=== PATIENT | female | born 1960 | race Caucasian/White ===

== ENCOUNTER 2022-05-20 11:08 | Outpatient (REF) | payer OTHER, SELFPAY ==
[2022-05-20 13:22] LABS: MANUAL DIFF FLAG NO
[2022-05-20 13:36] LABS: Basophils Absolute Auto 0.1 X10*3/uL (0.0-0.2); Basophils Percent Auto 0.7 % (0-2); Eosinophils Absolute Auto 0.1 X10*3/uL (0.0-0.4); Hematocrit 43.6 % (37.0-47.0); Hemoglobin 14.4 g/dl (12.0-16.0); Imm Gran Abs Auto 0.07 X10*3/uL (0.00-0.03); Imm Gran Pct Auto 0.6 % (0.0-0.4); Lymphocytes Absolute Auto 1.3 X10*3/uL (1.2-4.9); Lymphocytes Percent Auto 10.2 % (20-40); Mean Corpuscular Hemoglobin 32.7 pg (27.0-33.0); Mean Corpuscular Volume 98.9 fL (80.0-98.0); Mean Platelet Volume 11.4 fL (9.4-12.3); Monocytes Absolute Auto 0.8 X10*3/uL (0.1-1.2); Monocytes Percent Auto 6.4 % (2-11); Neutrophils Absolute Auto 10.2 x10*3/uL (2.0-8.3); Neutrophils Percent Auto 81.1 % (45-73); Platelet Count 346 X10*3/uL (160-400); Red Blood Count 4.41 X10*6/uL (4.20-5.50); Red Cell Distribution Width 11.9 % (11.0-16.0); White Blood Count 12.6 X10*3/uL (4.8-10.8)
[2022-05-20 13:55] LABS: Alanine Aminotransferase 39 U/L (0-31); Albumin Level 4.2 g/dL (3.5-5.0); Alkaline Phosphatase 93 U/L (39-117); Anion Gap 17 (12-20); Aspartate Amino Transferase 42 U/L (5-31); Bilirubin Total 0.6 mg/dL (0.0-1.0); Blood Urea Nitrogen 13 mg/dL (9-16); Calcium 8.8 mg/dL (8.4-10.2); Carbon Dioxide 29 mmol/L (22-29); Chloride 98 mmol/L (96-108); Cholesterol 254 mg/dL; Estimated Glomerular Filt Rate > 60; Glucose Fasting 109 mg/dL (60-99); HDL Cholesterol 66 mg/dL; LDL Cholesterol Calculated 176 mg/dl; Potassium 4.5 mmol/L (3.3-5.1); Sodium 139 mmol/L (135-145); Triglycerides 63 mg/dL
== END 2022-05-20 11:09 | disposition home or self-care (01) ==
LOC: HO.10HDL 11:08
PROVIDERS: Visit Provider Internal Medicine Medical Oncology
DX: E78.2 Mixed hyperlipidemia (principal); D47.3 Essential (hemorrhagic) thrombocythemia
CPT/HCPCS: 36415; 80053; 80061; 85025

== ENCOUNTER 2022-11-18 10:59 | Outpatient (REF) | payer OTHER, SELFPAY ==
[2022-11-18 13:39] LABS: MANUAL DIFF FLAG NO
[2022-11-18 13:52] LABS: Basophils Absolute Auto 0.1 X10*3/uL (0.0-0.2); Basophils Percent Auto 0.7 % (0-2); Eosinophils Absolute Auto 0.1 X10*3/uL (0.0-0.4); Eosinophils Percent Auto 1.2 % (0-4); Hematocrit 43.5 % (37.0-47.0); Hemoglobin 14.8 g/dl (12.0-16.0); Imm Gran Abs Auto 0.06 X10*3/uL (0.00-0.03); Imm Gran Pct Auto 0.5 % (0.0-0.4); Lymphocytes Absolute Auto 1.5 X10*3/uL (1.2-4.9); Lymphocytes Percent Auto 12.6 % (20-40); Mean Corpuscular Hemoglobin 33.1 pg (27.0-33.0); Mean Corpuscular Volume 97.3 fL (80.0-98.0); Mean Platelet Volume 10.6 fL (9.4-12.3); Monocytes Absolute Auto 0.7 X10*3/uL (0.1-1.2); Monocytes Percent Auto 5.4 % (2-11); Neutrophils Absolute Auto 9.7 x10*3/uL (2.0-8.3); Neutrophils Percent Auto 79.6 % (45-73); Platelet Count 376 X10*3/uL (160-400); Red Blood Count 4.47 X10*6/uL (4.20-5.50); Red Cell Distribution Width 11.8 % (11.0-16.0); White Blood Count 12.2 X10*3/uL (4.8-10.8)
[2022-11-18 14:30] LABS: Alanine Aminotransferase 25 U/L (0-31); Albumin Level 4.5 g/dL (3.5-5.0); Alkaline Phosphatase 71 U/L (39-117); Anion Gap 16 (12-20); Aspartate Amino Transferase 29 U/L (5-31); Bilirubin Total 0.4 mg/dL (0.0-1.0); Blood Urea Nitrogen 8 mg/dL (9-16); Calcium 9.7 mg/dL (8.4-10.2); Carbon Dioxide 29 mmol/L (22-29); Chloride 99 mmol/L (96-108); Cholesterol 262 mg/dL (<200); Estimated Glomerular Filt Rate > 60; Glucose Fasting 122 mg/dL (60-99); HDL Cholesterol 71 mg/dL (>40); LDL Cholesterol Calculated 164 mg/dL (<100); Potassium 3.6 mmol/L (3.3-5.1); Sodium 140 mmol/L (135-145); Total Protein 7.7 g/dL (6.5-8.0); Triglycerides 136 mg/dL (<150)
== END 2022-11-18 11:00 | disposition home or self-care (01) ==
LOC: HO.10HDL 10:59
PROVIDERS: Visit Provider Internal Medicine Medical Oncology
DX: Z00.00 Encounter for general adult medical examination without abnormal findings (principal); E78.2 Mixed hyperlipidemia; D47.3 Essential (hemorrhagic) thrombocythemia
CPT/HCPCS: 36415; 80053; 80061; 85025

== ENCOUNTER 2022-12-23 10:38 | Outpatient (REF) | payer OTHER, SELFPAY ==
[2022-12-23 13:37] LABS: Alanine Aminotransferase 25 U/L (0-31); Albumin Level 4.5 g/dL (3.5-5.0); Alkaline Phosphatase 65 U/L (39-117); Anion Gap 16 (12-20); Aspartate Amino Transferase 28 U/L (5-31); Bilirubin Total 0.6 mg/dL (0.0-1.0); Blood Urea Nitrogen 9 mg/dL (9-16); Calcium 9.8 mg/dL (8.4-10.2); Carbon Dioxide 28 mmol/L (22-29); Chloride 102 mmol/L (96-108); Cholesterol 275 mg/dL (<200); Estimated Glomerular Filt Rate > 60; Glucose Fasting 128 mg/dL (60-99); HDL Cholesterol 74 mg/dL (>40); LDL Cholesterol Calculated 181 mg/dL (<100); Potassium 4.1 mmol/L (3.3-5.1); Sodium 142 mmol/L (135-145); Total Protein 7.7 g/dL (6.5-8.0); Triglycerides 102 mg/dL (<150)
== END 2022-12-23 10:39 | disposition home or self-care (01) ==
LOC: HO.10HDL 10:38
PROVIDERS: Visit Provider Internal Medicine Medical Oncology
DX: E78.2 Mixed hyperlipidemia (principal)
CPT/HCPCS: 36415; 80053; 80061

== ENCOUNTER 2023-03-12 10:18 | Outpatient (REF) | payer OTHER, SELFPAY ==
--- NOTE | ~2023-03-12 | XR_ITS ---
EXAMINATION: XR HAND, RIGHT CLINICAL INFORMATION: Right hand pain COMPARISON: None available. TECHNIQUE: PA, lateral, and oblique views of the right hand. FINDINGS: First carpometacarpal joint possible marginal osteophyte without joint space narrowing indicative of mild osteoarthritis. Additional bone and joints and soft tissues unremarkable. . No erosions or soft tissue calcifications. XR/XR hand RT min 3V IMPRESSION: Mild osteoarthritis of the first carpometacarpal joint.
== END 2023-03-12 10:19 | disposition home or self-care (01) ==
LOC: HO.XRAY 10:18
PROVIDERS: PCP Internal Medicine Medical Oncology; Visit Provider Internal Medicine Medical Oncology
DX: M79.641 Pain in right hand (principal); M79.89 Other specified soft tissue disorders
CPT/HCPCS: 73130

== ENCOUNTER 2023-05-28 10:37 | Outpatient (REF) | payer OTHER, SELFPAY ==
[2023-05-28 13:17] LABS: MANUAL DIFF FLAG NO
[2023-05-28 13:53] LABS: Basophils Absolute Auto 0.1 X10*3/uL (0.0-0.2); Basophils Percent Auto 0.6 % (0-2); Eosinophils Absolute Auto 0.2 X10*3/uL (0.0-0.4); Eosinophils Percent Auto 1.4 % (0-4); Hematocrit 43.4 % (37.0-47.0); Hemoglobin 14.5 g/dl (12.0-16.0); Imm Gran Abs Auto 0.06 X10*3/uL (0.00-0.03); Imm Gran Pct Auto 0.5 % (0.0-0.4); Lymphocytes Absolute Auto 1.6 X10*3/uL (1.2-4.9); Lymphocytes Percent Auto 11.9 % (20-40); Mean Corpuscular HGB Conc 33.4 g/dl (31.0-35.0); Mean Corpuscular Hemoglobin 33.1 pg (27.0-33.0); Mean Corpuscular Volume 99.1 fL (80.0-98.0); Mean Platelet Volume 10.3 fL (9.4-12.3); Monocytes Absolute Auto 0.9 X10*3/uL (0.1-1.2); Monocytes Percent Auto 6.6 % (2-11); Neutrophils Absolute Auto 10.5 x10*3/uL (2.0-8.3); Platelet Count 371 X10*3/uL (160-400); Red Blood Count 4.38 X10*6/uL (4.20-5.50); Red Cell Distribution Width 11.9 % (11.0-16.0); White Blood Count 13.3 X10*3/uL (4.8-10.8)
[2023-05-28 13:59] LABS: Alanine Aminotransferase 20 U/L (0-31); Albumin Level 4.4 g/dL (3.5-5.0); Alkaline Phosphatase 60 U/L (39-117); Anion Gap 13 (12-20); Aspartate Amino Transferase 26 U/L (5-31); Bilirubin Total 0.7 mg/dL (0.0-1.0); Blood Urea Nitrogen 10 mg/dL (9-16); Calcium 9.5 mg/dL (8.4-10.2); Carbon Dioxide 32 mmol/L (22-29); Chloride 98 mmol/L (96-108); Cholesterol 272 mg/dL (<200); Estimated Glomerular Filt Rate > 60; Glucose Fasting 132 mg/dL (60-99); HDL Cholesterol 82 mg/dL (>40); LDL Cholesterol Calculated 172 mg/dL (<100); Potassium 4.3 mmol/L (3.3-5.1); Sodium 139 mmol/L (135-145); Total Protein 7.5 g/dL (6.5-8.0); Triglycerides 91 mg/dL (<150)
== END 2023-05-28 10:38 | disposition home or self-care (01) ==
LOC: HO.HMGCLDS 10:37
PROVIDERS: PCP Internal Medicine Medical Oncology; Visit Provider Internal Medicine Medical Oncology
DX: E78.2 Mixed hyperlipidemia (principal); R73.9 Hyperglycemia, unspecified; R63.6 Underweight
CPT/HCPCS: 36415; 80053; 80061; 85025

== ENCOUNTER 2023-09-29 11:59 | Outpatient (REF) | payer OTHER, SELFPAY ==
[2023-09-29 13:25] LABS: MANUAL DIFF FLAG NO
[2023-09-29 13:51] LABS: Basophils Absolute Auto 0.1 X10*3/uL (0.0-0.2); Basophils Percent Auto 0.8 % (0-2); Eosinophils Absolute Auto 0.1 X10*3/uL (0.0-0.4); Eosinophils Percent Auto 1.1 % (0-4); Hematocrit 42.4 % (37.0-47.0); Hemoglobin 14.4 g/dl (12.0-16.0); Imm Gran Abs Auto 0.07 X10*3/uL (0.00-0.03); Imm Gran Pct Auto 0.5 % (0.0-0.4); Lymphocytes Absolute Auto 1.3 X10*3/uL (1.2-4.9); Mean Corpuscular Hemoglobin 33.6 pg (27.0-33.0); Mean Corpuscular Volume 98.8 fL (80.0-98.0); Mean Platelet Volume 10.6 fL (9.4-12.3); Monocytes Absolute Auto 0.8 X10*3/uL (0.1-1.2); Monocytes Percent Auto 6.1 % (2-11); Neutrophils Absolute Auto 10.7 x10*3/uL (2.0-8.3); Neutrophils Percent Auto 81.5 % (45-73); Platelet Count 364 X10*3/uL (160-400); Red Blood Count 4.29 X10*6/uL (4.20-5.50); White Blood Count 13.1 X10*3/uL (4.8-10.8)
[2023-09-29 14:05] LABS: Alanine Aminotransferase 21 U/L (0-31); Albumin Level 4.6 g/dL (3.5-5.0); Alkaline Phosphatase 67 U/L (39-117); Anion Gap 15 (12-20); Aspartate Amino Transferase 31 U/L (5-31); Bilirubin Total 0.6 mg/dL (0.0-1.0); Blood Urea Nitrogen 9 mg/dL (9-16); Calcium 9.7 mg/dL (8.4-10.2); Carbon Dioxide 31 mmol/L (22-29); Chloride 98 mmol/L (96-108); Cholesterol 281 mg/dL (<200); Estimated Glomerular Filt Rate > 60; Glucose Fasting 132 mg/dL (60-99); HDL Cholesterol 89 mg/dL (>40); LDL Cholesterol Calculated 172 mg/dL (<100); Potassium 4.2 mmol/L (3.3-5.1); Sodium 140 mmol/L (135-145); Total Protein 7.8 g/dL (6.5-8.0); Triglycerides 104 mg/dL (<150)
== END 2023-09-29 12:00 | disposition home or self-care (01) ==
LOC: HO.HMGCLDS 11:59
PROVIDERS: PCP Internal Medicine Medical Oncology; Visit Provider Internal Medicine Medical Oncology
DX: Z00.00 Encounter for general adult medical examination without abnormal findings (principal); Z12.11 Encounter for screening for malignant neoplasm of colon; E78.2 Mixed hyperlipidemia; R63.6 Underweight
CPT/HCPCS: 36415; 80053; 80061; 85025

== ENCOUNTER 2024-02-02 10:51 | Outpatient (REF) | payer OTHER, SELFPAY ==
[2024-02-02 13:19] LABS: MANUAL DIFF FLAG NO
[2024-02-02 13:29] LABS: Basophils Absolute Auto 0.1 X10*3/uL (0.0-0.2); Eosinophils Absolute Auto 0.1 X10*3/uL (0.0-0.4); Eosinophils Percent Auto 0.9 % (0-4); Hematocrit 41.1 % (37.0-47.0); Hemoglobin 13.9 g/dl (12.0-16.0); Imm Gran Abs Auto 0.05 X10*3/uL (0.00-0.03); Imm Gran Pct Auto 0.4 % (0.0-0.4); Lymphocytes Absolute Auto 1.4 X10*3/uL (1.2-4.9); Lymphocytes Percent Auto 9.9 % (20-40); Mean Corpuscular HGB Conc 33.8 g/dl (31.0-35.0); Mean Corpuscular Hemoglobin 33.3 pg (27.0-33.0); Mean Corpuscular Volume 98.6 fL (80.0-98.0); Mean Platelet Volume 10.3 fL (9.4-12.3); Monocytes Absolute Auto 0.9 X10*3/uL (0.1-1.2); Monocytes Percent Auto 6.8 % (2-11); Neutrophils Absolute Auto 11.3 x10*3/uL (2.0-8.3); Platelet Count 381 X10*3/uL (160-400); Red Blood Count 4.17 X10*6/uL (4.20-5.50); Red Cell Distribution Width 11.9 % (11.0-16.0); White Blood Count 13.9 X10*3/uL (4.8-10.8)
[2024-02-02 14:29] LABS: Alanine Aminotransferase 25 U/L (0-31); Albumin Level 4.3 g/dL (3.5-5.0); Alkaline Phosphatase 81 U/L (39-117); Anion Gap 16 (12-20); Aspartate Amino Transferase 47 U/L (5-31); Bilirubin Total 0.7 mg/dL (0.0-1.0); Blood Urea Nitrogen 11 mg/dL (9-16); Calcium 9.8 mg/dL (8.4-10.2); Carbon Dioxide 29 mmol/L (22-29); Chloride 99 mmol/L (96-108); Cholesterol 249 mg/dL (<200); Estimated Glomerular Filt Rate > 60; Glucose Fasting 131 mg/dL (60-99); HDL Cholesterol 79 mg/dL (>40); LDL Cholesterol Calculated 150 mg/dL (<100); Potassium 4.4 mmol/L (3.3-5.1); Sodium 140 mmol/L (135-145); Total Protein 7.6 g/dL (6.5-8.0); Triglycerides 104 mg/dL (<150)
== END 2024-02-02 10:52 | disposition home or self-care (01) ==
LOC: HO.HMGCLDS 10:51
PROVIDERS: PCP Internal Medicine Medical Oncology; Visit Provider Internal Medicine Medical Oncology
DX: E78.2 Mixed hyperlipidemia (principal); R63.6 Underweight
CPT/HCPCS: 36415; 80053; 80061; 85025

== ENCOUNTER 2024-05-27 11:07 | Outpatient (REF) | payer OTHER, SELFPAY ==
[2024-05-27 13:08] LABS: MANUAL DIFF FLAG NO
[2024-05-27 13:24] LABS: Basophils Absolute Auto 0.1 X10*3/uL (0.0-0.2); Basophils Percent Auto 0.9 % (0-2); Eosinophils Absolute Auto 0.3 X10*3/uL (0.0-0.4); Eosinophils Percent Auto 2.1 % (0-4); Hematocrit 42.8 % (37.0-47.0); Hemoglobin 14.4 g/dl (12.0-16.0); Imm Gran Abs Auto 0.06 X10*3/uL (0.00-0.03); Imm Gran Pct Auto 0.5 % (0.0-0.4); Lymphocytes Absolute Auto 1.6 X10*3/uL (1.2-4.9); Mean Corpuscular HGB Conc 33.6 g/dl (31.0-35.0); Mean Corpuscular Volume 97.9 fL (80.0-98.0); Mean Platelet Volume 10.5 fL (9.4-12.3); Monocytes Absolute Auto 0.9 X10*3/uL (0.1-1.2); Neutrophils Absolute Auto 8.7 x10*3/uL (2.0-8.3); Neutrophils Percent Auto 74.5 % (45-73); Platelet Count 352 X10*3/uL (160-400); Red Blood Count 4.37 X10*6/uL (4.20-5.50); Red Cell Distribution Width 12.5 % (11.0-16.0); White Blood Count 11.7 X10*3/uL (4.8-10.8)
[2024-05-27 13:38] LABS: Estimated Average Glucose 100 mg/dL; Hemoglobin A1c % 5.1 % (<6.0); Total Hemoglobin (HGBA1C) 3812.5434 umol/L
[2024-05-27 14:12] LABS: Alanine Aminotransferase 54 U/L (0-31); Albumin Level 4.4 g/dL (3.5-5.0); Alkaline Phosphatase 93 U/L (39-117); Anion Gap 17 (12-20); Aspartate Amino Transferase 63 U/L (5-31); Bilirubin Total 0.7 mg/dL (0.0-1.0); Blood Urea Nitrogen 10 mg/dL (9-16); Calcium 9.5 mg/dL (8.4-10.2); Carbon Dioxide 29 mmol/L (22-29); Chloride 100 mmol/L (96-108); Cholesterol 279 mg/dL (<200); Estimated Glomerular Filt Rate > 60; Glucose Fasting 136 mg/dL (60-99); HDL Cholesterol 85 mg/dL (>40); LDL Cholesterol Calculated 175 mg/dL (<100); Potassium 4.5 mmol/L (3.3-5.1); Sodium 141 mmol/L (135-145); Triglycerides 98 mg/dL (<150)
== END 2024-05-27 11:08 | disposition home or self-care (01) ==
LOC: HO.HMGCLDS 11:07
PROVIDERS: PCP Internal Medicine Medical Oncology; Visit Provider Internal Medicine Medical Oncology
DX: E78.2 Mixed hyperlipidemia (principal); R73.9 Hyperglycemia, unspecified; R63.6 Underweight
CPT/HCPCS: 36415; 80053; 80061; 83036; 85025

== ENCOUNTER 2024-11-30 11:19 | Outpatient (REF) | payer OTHER, SELFPAY ==
--- OUTSIDE RECORDS SUMMARY | 2023-06-11 07:00 | XMS_ITS ---
Author Organization Jagdish Forde III, MD Address [address] [place] [address] Care Team Providers Care Highway Worker Name Role Phone Dr. Jagdish Forde III Primary Care Provider [phone] Allergies Allergen (clinical drug ingredient) Drug/Non Drug Allergy documented on EMR Reaction Allergy Type Onset Date Status No Known Drug Allergy Unknown Drug Allergy Active Results Component Value Reference Range Notes URINE DIP STICK Reviewed date:06/11/2023 11:32:38 AM Interpretation: Performing Lab: Notes/Report: SG 1.005 1.005 - 1.025 pH 9.0 5.0 - 9.0 MAYELIN Negative Negative - NIT Negative Negative - PRO 15 Negative - Trace GLU Negative Negative - KET Negative Negative - UBG 0.2 0.1 - 1.8 DARLING Negative 0.2 - 1.3 BLD Positive Negative - REASON FOR VISIT annual visit Social History Tobacco Use: Social History Observation Description Date Details (start date - stop date) Current Smoker NA - NA Sex Assigned At : Social History Observation Description Sex Assigned At Female Tobacco Use/Smoking Question Answer Notes Patient is a current smoker How often do you smoke cigarettes? every day How many cigarettes a day do you smoke? 6-10 How soon after you wake up d o you smoke your first cigarette? 31-60 minutes Are you interested in quitting? Not ready to abhijit t Additional Findings: Tobacco User Light cigarett e smoker ((1-9 cigs/day) Alcohol Screen Question Answer Notes Did you have a drink contain ing alcohol in the past year? Yes How often did you have a dri nk containing alcohol in the past year? Monthly or less (1 point) How many drinks did you have on a typical day when you were drinking in the past year? 1 or 2 drinks (0 point) How often did you have 6 or more drinks on one occasion in the past year? Never (0 point) Points 1 Interpretation Negative Vital Signs Temperature 98.2 degrees Fahrenheit 06/11/19 24 Blood pressure systolic 138 mm Hg 06/11/19 24 Blood pressure diastolic 78 mm Hg 024 Heart Rate 105 /min 06/11/2023 Height 68 in 06/11/2023 Weight 120 lbs 06/11/2023 BMI 18.24 kg/m2 06/11/2023 Encounters Encounter Location Date Provider Diagnosis Jagdish Forde III, MD [address] [place] [address] [place] [address] 06/11/2023 Jagdish Forde Encounter for screen ing for malignant neoplasm of colon Z12.11 ; Mixed hyperlipidemia E78.2 ; Underweight R63.6 ; History of psoriasis Z87.2 ; Edentulous maxilla K08.409 ; Postmenopausal Z78.0 and Tobacco dependence F17.200 Assessments Encounter Date Diagnosis (ICD Code) Assessment Notes Treat ment Notes Treatment Clinical Notes 06/11/2023 Encounter for screening for malignant neoplasm of colon (ICD-10 - Z12.11) She is trying to have a screening CT scan. 06/11/2023 Mixed hyperlipidemia (ICD-10 - E78.2) Her lipids are currently stable but elevated. Total cholesterol is 272. She declined my offer of a statin drug or of any other lipid-lowering medication. 06/11/2023 Underweight (ICD-10 - R63.6) We have discussed a healthy diet and good nutrition at length today. 06/11/2023 History of psoriasis (ICD-10 - Z87.2) Psoriasis was minimal today in no change in therapy was necessary. 06/11/2023 Edentulous maxilla (ICD-10 - K08.409) She says the denture fits poorly and she is going to see the dentist next week for an adjustment. 06/11/2023 Postmenopausal (ICD-10 - Z78.0) She has agreed to have a bone density test every 2 years. She has not had any periods since her last visit. 06/11/2023 Tobacco dependence (ICD-10 - F17.200) She continues to smoke on a daily basis. I've discussed with her the health consequences of doing so. I have made her aware of the smoking cessation program to the community at the local hospital. I have referred her to smoke [place]. Plan Of Treatment Pending Test Test Name Order Date PROFILE, FASTING (COMPREHENSIVE METABOLI C) 06/11/2023 CBC WITH AUTO DIFF 06/11/2023 COLOGUARD 06/11/2023 Lipid Panel 06/11/2023 Next Appt Details Follow Up: 4 Months, Reason: OV Provider Name:Jagdish Forde , 12/14/2024 11:00:00 AM, [address] [place] [address] [address], [place], [address], Provider Name:Jagdish Forde , 06/13/2025 11:00:00 AM, [address] [place] [address] [address] [place], [place], [address], Progress Notes * DAVIDMAYI TapanaDOB:1960 (62 yo F)Acc No.[id number]:06/11/2023 Progress Notes Patient: Lore Jauregui Provider: Jenna Forde MD :1960 A ge:62 Y S ex:Female Date:06/11/2023 Address:[address] [place], [place] [id number] Subjective: * Chief Complaints: * A nnual visit * HPI: D epression Screening: She comes to the office at the age of 62 for an annual physical examination. Since her last visit she has been feeling healthy and well. She has no new complaints. Her cholesterol was 272. It has been elevated in the past. She was offered a statin medication to take and once again declined the offer. She has lost 3 pounds and now weighs 120. Her body mass index is 18. We discussed her intake of calories at length today. PHQ-9 L ittle interest or pleasure in doing things?Not at all F eeling down, depressed, or hopeless N ot at all T rouble falling or staying asleep, or sleeping too much N ot at all F eeling tired or having little energy N ot at all P oor appetite or overeating N ot at all F eeling bad about yourself or that you are a failure, or have let yourself or your family down N ot at all T rouble concentrating on things, such as reading the newspaper or watching television N ot at all M oving or speaking so slowly that other people could have noticed; or the opposite, being so fidgety or restless that you have been moving around a lot more than usual N ot at all T houghts that you would be better off or of hurting yourself in some way N ot at all T otal Score 0 C OVID-19 Screening: Questions H ave you experienced fever, chills, cough, sore throat, shortness of breath, difficulty breathing, muscle aches, loss of taste or smell? N o H ave you been exposed to the virus within the last 10 days? N o H ave you travelled internationally in the last 10 days? N o H ave you been exposed to COVID-19 in the past? Y es S DOUGIE Questions: SDOH Questions I n the past year have you been worried about losing your housing? N o I n the past year have you or any family members you live with been unable to get any of the following when it was really needed? Check all that apply: N one * ROS: G eneral/Constitutional: pain o nly normal aches and pains, rith hand. C hills?denies. F atigue a dmits. F ever d enies. E NT: Decreased hearing d enies. R espiratory: Cough n on-productive. C ardiovascular: Chest pain with exertion d enies. D yspnea on exertion?denies. S hortness of breath d enies. G astrointestinal: Constipation o ccasional. D ecreased appetite d enies. D iarrhea d enies. H eartburn d enies. N ausea d enies. R ectal bleeding d enies. V omiting d enies. H ematology: bruising d enies. p etechiae d enies. S wollen glands n one have been noted. G enitourinary: Frequent urination a t night. M usculoskeletal: Muscle aches d enies. P ainful joints H ands shoulders and knees. S ciatica d enies. W eakness d enies. S kin: Itching d enies. R uli d enies. S kin lesion(s)?denies. N eurologic: Difficulty speaking d enies. D izziness d enies.?Headache d enies. L ow back pain d enies. P sychiatric: Depressed mood d enies. * Medical History: * Surgical History: u pper teeth extraction 2017resection inclusion cyst, left chin is a lump in declines colonoscopy * Hospitalization/Major Diagno stic Procedure: D enies Past Hospitalization * Family History: F ather: 62 yrs, CAD, [place], diabetes, diagnosed with DM, CVD. M other: 73 yrs, hypertension, colon cancer, diagnosed with Cancer, HTN. 1 daughter(s) - healthy. . She has no biological siblings but has 3 stepbothers and 3 stepsisters. Her daughter is well. * Social History: T obacco Use: T obacco Use/Smoking P atient is a c urrent smoker H ow often do you smoke cigarettes? e very day H ow many cigarettes a day do you smoke? 6 -10 H ow soon after you wake up do you smoke your first cigarette? 3 1-60 minutes A re you interested in quitting? N ot ready to quit A dditional Findings: Tobacco User L ight cigarette smoker ((1-9 cigs/day) D rugs/Alcohol: D rugs H ave you used drugs other than those for medical reasons in the past 12 months? N o Alcohol Screen D id you have a drink containing alcohol in the past year? Y es H ow often did you have a drink containing alcohol in the past year? M onthly or less (1 point) H ow many drinks did you have on a typical day when you were drinking in the past year? 1 or 2 drinks (0 point) H ow often did you have 6 or more drinks on one occasion in the past year? N ever (0 point) P oints 1 I nterpretation N egative S he is single with one daughter. 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 She was born and [place], [place]. She declines to have a colonoscopy. * Medications: N one * Allergies: N o Known Drug Allergyno[Allergies Verified] Objective: * Vitals: H t: 68, Wt: 120, BMI:18.24, BP: 138/78, HR: 105, Temp: 98.2, Wt-k.43. * P ast Orders: L ab:Complete Blood Count Auto Diff (Order Date - 05/28/2023) (Collection Date - 05/28/2023) Value Reference Range White Blood Count 13.3 H 4.8-10.8 - X10*3/uL Red Blood Count 4.38 4.20-5.50 - X10*6/uL Hemoglobin 14.5 12.0-16.0 - g/dl Hematocrit 43.4 37.0-47.0 - % Mean Corpuscular Volume 99.1 H 80.0-98.0 - fL Mean Corpuscular Hemoglobin 33.1 H 27.0-33.0 - pg Mean Corpuscular HGB Conc 33.4 31.0-35.0 - g/ dl Red Cell Distribution Width 11.9 11.0-16.0 - % Platelet Count 371 160-400 - X10*3/uL Mean Platelet Volume 10.3 9.4-12.3 - fL Neutrophils Percent Auto 79.0 H 45-73 - % Imm Gran Pct Auto 0.5 H 0.0-0.4 - % Lymphocytes Percent Auto 11.9 L 20-40 - % Monocytes Percent Auto 6.6 2-11 - % Eosinophils Percent Auto 1.4 0-4 - % Basophils Percent Auto 0.6 0-2 - % NRBC Pct Auto 0.0 0.0-0.2 - /100WBC Neutrophils Absolute Auto 10.5 H 2.0-8.3 - x10* 3/uL Imm Gran Abs Auto 0.06 H 0.00-0.03 - X10*3/uL Lymphocytes Absolute Auto 1.6 1.2-4.9 - X10* 3/uL Monocytes Absolute Auto 0.9 0.1-1.2 - X10*3/ uL Eosinophils Absolute Auto 0.2 0.0-0.4 - X10* 3/uL Basophils Absolute Auto 0.1 0.0-0.2 - X10*3/ uL NRBC Abs Auto 0.000 0.0-0.012 - X10*3/uL L ab:Comprehensive [place]. Panel Fast (Order Date - 05/28/2023) (Collection Date - 05/28/2023) Value Reference Range Sodium 139 135-145 - mmol/L Bilirubin Total 0.7 0.0-1.0 - mg/dL Aspartate Amino Transferase 26 5-31 - U/L Alanine Aminotransferase 20 0-31 - U/L Total Protein 7.5 6.5-8.0 - g/dL Albumin Level 4.4 3.5-5.0 - g/dL Alkaline Phosphatase 60 39-117 - U/L Potassium 4.3 3.3-5.1 - mmol/L Chloride 98 96-108 - mmol/L Carbon Dioxide 32 H 22-29 - mmol/L Anion Gap 13 12-20 - Blood Urea Nitrogen 10 9-16 - mg/dL Creatinine 0.63 0.5-1.4 - mg/dL Estimated Glomerular Filt Rate > 60 - Glucose Fasting 132 H 60-99 - mg/dL Calcium 9.5 8.4-10.2 - mg/dL L ab:Lipid Panel (Order Date - 05/28/2023) (Collection Date - 05/28/2023) Value Reference Range Triglycerides 91 <150 - mg/dL Cholesterol 272 H <200 - mg/dL LDL Cholesterol Calculated 172 H <100 - mg/dL HDL Cholesterol 82 >40 - mg/dL Lab:URINE DIP STICK * Order Date 06/11/2023 05/27/2022 09/07/2018 SG 1.005 (Ref Range: 1.005 - 1.025) 1.000 (Ref Range: 1.005 - 1.025) 1.010 pH 9.0 (Ref Range: 5.0 - 9.0) 7.5 (Ref Range: 5.0 - 9.0) 6.5 MAYELIN Negative (Ref Range: Negative -) neg (Ref Range: Negative -) neg NIT Negative (Ref Range: Negative -) neg (Ref Range: Negative -) neg PRO 15 (Ref Range: Negative - Trace) neg (Ref Range: Negative - Trace) neg GLU Negative (Ref Range: Negative -) neg (Ref Range: Negative -) normal KET Negative (Ref Range: Negative -) neg (Ref Range: Negative -) neg UBG 0.2 (Ref Range: 0.1 - 1.8) normal (Ref Range: 0.1 - 1.8) normal DARLING Negative (Ref Range: 0.2 - 1.3) neg (Ref Range: 0.2 - 1.3) neg BLD Positive (Ref Range: Negative -) neg (Ref Range: Negative -) neg Menstrating NR N/A no * Examination: G eneral Examination: GENERAL APPEARANCE: p leasant, underweight, well developed, in no acute distress, calm and relaxed , woman. HEAD: a traumatic, normocephalic. EYES: e emily, perrla, anicteric, conjugate. EARS: n ormal. NOSE: s eptum intact. ORAL CAVITY: n ormal, unremarkable, Edentulous maxilla.? NECK/THYROID: n o jugular venous distention, no carotid bruit, thyroid normal. LYMPH NODES: n o enlarged lymph nodes,spleen normal. SKIN: n o suspicious lesions, anicteric. HEART: n o clicks, gallops, murmurs, or rubs, regular rhythm, S1, S2 normal, no s3, or vascular bruits. LUNGS: c lear to auscultation . BREASTS: no masses palpable bilaterally. ABDOMEN: b owel sounds normal, no ascites, no organomegaly, no mass, Underweight. RECTAL EXAM: n ot examined. MUSCULOSKELETAL: e xtremities unremarkable, no clubbing, cyanosis or edema. PERIPHERAL PULSES: n ormal. NEUROLOGIC: a lert and oriented, cranial nerves 2-12 grossly intact, deep tendon reflexes 2+ symmetrical, motor strength normal upper and lower extremities, sensory exam intact. PSYCH: a lert, oriented , good eye contact , speech clear , mood/affect full range , cooperative with exam , cognitive function intact. Assessment: * Assessment: 1. E ncounter for screening for malignant neoplasm of colon - Z12.11, She is trying to have a screening CT scan. 2 . M ixed hyperlipidemia - E78.2, Her lipids are currently stable but elevated.Total cholesterol is 272. She declined my offer of a statin drug or of any other lipid-lowering medication. 3 . U nderweight - R63.6, We have discussed a healthy diet and good nutrition at length today. 4 . H istory of psoriasis - Z87.2, Psoriasis was minimal today in no change in therapy was necessary. 5 . E dentulous maxilla - K08.409, She says the denture fits poorly and she is going to see the dentist next week for an adjustment. 6 . P ostmenopausal - Z78.0, She has agreed to have a bone density test every 2 years. She has not had any periods since her last visit. 7 . T obacco dependence - F17.200, She continues to smoke on a daily basis. I've discussed with her the health consequences of doing so. I have made her aware of the smoking cessation program to the community at the local hospital. I have referred her to smoke [place]. Plan: * Treatment: 2. M ixed hyperlipidemia L AB: PROFILE, FASTING (COMPREHENSIVE METABOLIC) L AB: CBC WITH AUTO DIFF L AB: Lipid Panel 3. U nderweight L AB: PROFILE, FASTING (COMPREHENSIVE METABOLIC) L AB: CBC WITH AUTO DIFF L AB: Lipid Panel * Labs: * L ab: URINE DIP STICK Value Reference Range S G 1.005 1.005 - 1.025 * p H 9.0 5.0 - 9.0 * L EU Negative Negative - * N IT Negative Negative - * P RO 15 Negative - Trace * G EDNA Negative Negative - * K ET Negative Negative - * U BG 0.2 0.1 - 1.8 * B IL Negative 0.2 - 1.3 * B LD Positive Negative - * Procedure Codes: 8 1002 URINE-NO MICRO * Preventive Medicine: Counseling: C are goal follow-up plan: Counseling for abnormal BMI given Y es Below Normal BMI Follow-up D ietary education for weight gain, Dietary management education, guidance, and counseling, Feeding regime, Lifestyle education regarding diet, Nutrition / feeding management, Prescribed diet education, Special diet education, Intervention, Order not done: Medical or Other reason not done S moking/Tobacco Use Patient counseled on the dangers of tobacco use and urged to quit. 0 06/11/2023 Patient Lifestyle Goals P atient wants to quit Treatment Goals C ut down by 1 cigarette a week, Set a quit date Barriers S tress, Social smoker Self-Management Plan M abby a plan to cut down number of cigarettes over time and set a date to work towards quitting * Follow Up: 4 Months (Reason: OV) * Images: * Sign off status: Completed true * Provider: Jenna Forde MD Date: 0 06/11/2023 Generated for Printi ng/Devorah/eTransmitting on: 0 11/30/2024 12:47 PM EDT History and Physical Notes * HPI (History of Present Illness) Category Sub-Category Detail Notes Depression Screening PHQ-9 Little inte rest or pleasure in doing things: Not at all Feeling down, depressed, or hopeless: No t at all Trouble falling or staying asleep, or sl eeping too much: Not at all Feeling tired or having little energy: N ot at all Poor appetite or overeating: Not at all Feeling bad about yourself o r that you are a failure, or have let yourself or your family down: Not at all Trouble concentrating on thi ngs, such as reading the newspaper or watching television: Not at all Moving or speaking so slowly that other people could have noticed; or the opposite, being so fidgety or restless that you have been moving around a lot more than usual: Not at all Thoughts that you would be b dago off or of hurting yourself in some way: Not at all Total Score: 0 COVID-19 Screening Questions Have you had any new onset fever, chills, cough, congestion, sore throat, shortness of breath, muscle aches?: No Have you been exposed to the virus withi n the last 10 days?: No Have you travelled internationally in e last 10 days?: No Have you been exposed to COVID-19 in the past?: Yes SDOH Questions SDOH Questions In the past year have you been worried about losing your housing?: No In the past year have you or any family members you live with been unable to get any of the following when it was really needed? Check all that apply:: None Examination Category Sub-Category Detail Notes General Examination GENERAL APPEARANCE: pleasant , underweight, well developed, in no acute distress, calm and relaxed , woman HEAD: atraumatic, normocep halic EYES: eomi, perrla, anicte alisson, conjugate EARS: normal NOSE: septum intact NECK/THYROID: no jugular venous di stention, no carotid bruit, thyroid normal HEART: no clicks, gallops, murmurs, or rubs, regular rhythm, S1, S2 normal, no s3, or vascular bruits LUNGS: clear to auscultatio n ABDOMEN: bowel sounds normal, no ascites, no organomegaly, no mass, Underweight NEUROLOGIC: alert and oriented, cranial nerves 2-12 grossly intact, deep tendon reflexes 2+ symmetrical, motor strength normal upper and lower extremities, sensory exam intact SKIN: no suspicious lesion s, anicteric PERIPHERAL PULSES: normal BREASTS: no masses palpable b ilaterally MUSCULOSKELETAL: extremities unremark able, no clubbing, cyanosis or edema LYMPH NODES: no enlarged lymph no gabrielle,spleen normal RECTAL EXAM: not examined PSYCH: alert, oriented , go od eye contact , speech clear , mood/affect full range , cooperative with exam , cognitive function intact ORAL CAVITY: normal, unremarkable , Edentulous maxilla
--- OUTSIDE RECORDS SUMMARY | 2023-07-10 06:09 | XMS_ITS ---
Author Organization Jagdish Forde III, MD Address [address] [place] [address] [place] [address] Care Team Providers Care Area Field Person Name Role Phone Dr. Jagdish Forde III Primary Care Provider REASON FOR VISIT cologuard positive results Social History Sex Assigned At : Social History Observation Description Sex Assigned At Female Encounters Encounter Location Date Provider Diagnosis Jagdish Forde III, MD [address] [place] [address] [place] [address] 07/10/2023 Jagdish Forde Plan Of Treatment Next Appt Details Provider Name:Jagdish Forde , 12/14/2024 11:00:00 AM, [address] [place] [address] [place], [address], Provider Name:Jagdish Forde , 06/13/2025 11:00:00 AM, [address] [place] [address] [place], [address], Progress Notes * Alton PARKER:1960 (62 yo F)Acc No.[id number]:07/10/2023 Patient: Lore Jauregui :1960 A ge:62 Y S ex:Female Address:[address] [place], [address] * true * Date: Generated for Everton rivas/Devorah/Chrissie on: 0 11/30/2024 12:47 PM EDT
--- OUTSIDE RECORDS SUMMARY | 2023-10-13 07:00 | XMS_ITS ---
Author Organization Jagdish Forde III, MD Address [address] [place] [address] [place] [address] Care Team Providers Care Senior Information Security Analyst Name Role Phone Dr. Jagdish Forde III Primary Care Provider Allergies Allergen (clinical drug ingredient) Drug/Non Drug Allergy documented on EMR Reaction Allergy Type Onset Date Status No Known Drug Allergy Unknown Drug Allergy Active REASON FOR VISIT Positive cologard test, Hyperlipidemia, Tobacco dependence, Underweight, Thrombocytosis, Hyperlipidemia Social History Tobacco Use: Social History Observation [...] User Light cigarett e smoker ((1-9 cigs/day) Problems Problem Type SNOMED Code ICD Code Onset Dates Problem Status W/U Status Risk Notes Problem 933058778 Positive colorectal cancer screening using Cologuard test (R19.5) Active confirmed This test was submitted July 01 and reported July 10, 2023. It was reported to be positive. She was informed of this in July of this year and declined to undergo colonoscopy. Today, she declines colonoscopy again after a long discussion of the risks and benefits and rationale for the procedure. She is well aware that she could have dysplasia and a polyp or a small malignancy that could be cured now and that may not be curable and the future. Nonetheless, she has declined to undergo colonoscopy stating she does not wish to have this procedure done. She gave no other explanation despite an extensive discussion. Problem 1169684 Noncompliance (Z91.199) Active confirmed She has declined to have a colonoscopy or to be treated with a statin medication. This is well within her rights. She has made an Informed decision after being presented with adequate information about the risks and benefits and rationale for these recommendatio ns. She was reassured today that if she changes her mind these treatments will still be available. Vital Signs Temperature 97.3 degrees Fahrenheit 10/13/19 24 Blood pressure systolic 134 mm Hg 10/13/19 24 Blood pressure diastolic 82 mm Hg 024 Heart Rate 90 /min 10/13/2023 Height 68 in 10/13/2023 Weight 123 lbs 10/13/2023 BMI 18.70 kg/m2 10/13/2023 Encounters Encounter Location Date Provider Diagnosis Jagdish Forde III, MD [address] [place] [address] [facility] [address] 10/13/2023 Jagdish Forde Mixed hyperlipidemia E78.2 ; Underweight R63.6 ; Tobacco dependence F17.200 ; Thrombocytosis D47.3 ; Noncompliance Z91.199 and Positive colorectal cancer screening using Cologuard test R19.5 Assessments Encounter Date Diagnosis (ICD Code) Assessment Notes Treat ment Notes Treatment Clinical Notes 10/13/2023 Mixed hyperlipidemia (ICD-10 - E78.2) Her fasting lipid profile shows an elevated risk of atherosclerosis. I have strongly recommended statin therapy. Once again, she has declined the use of drugs to reduce her lipids. I have reviewed with her the elements of a lipid lowering diet. Her body mass index is 18. She is significantly underweight. I reviewed Risser a diet that contains 3 healthy meals a day. The fasting glucose of 132 was also discussed. 10/13/2023 Underweight (ICD-10 - R63.6) Her body mass index is 18. She is underweight. I recommended weight gain through a healthy Mediterranean diet low in animal fat and concentrated sweets. Her fasting glucose of 132 was noted. 10/13/2023 Tobacco dependence (ICD-10 - F17.200) She continues to smoke on a daily basis. I've discussed with her the health consequences of doing so. I have made her aware of the smoking cessation program to the community at the local hospital. I have referred her to smoke Elizabeth. 10/13/2023 Thrombocytosis (ICD-10 - D47.3) Her platelet count is 376,000. This problem has resolved. 10/13/2023 Noncompliance (ICD-1 0 - Z91.199) She has declined to have a colonoscopy or to be treated with a statin medication. This is well within her rights. She has made an Informed decision after being presented with adequate information about the risks and benefits and rationale for these recommendations. She was reassured today that if she changes her mind these treatments will still be available. 10/13/2023 Positive colorectal cancer screening using Cologuard test (ICD-10 - R19.5) This test was submitted July 01 and reported July 10, 2023. It was reported to be positive. She was informed of this in July of this year and declined to undergo colonoscopy. Today, she declines colonoscopy again after a long discussion of the risks and benefits and rationale for the procedure. She is well aware that she could have dysplasia and a polyp or a small malignancy that could be cured now and that may not be curable and the future. Nonetheless, she has declined to undergo colonoscopy stating she does not wish to have this procedure done. She gave no other explanation despite an extensive discussion. Plan Of Treatment Pending Test Test Name Order Date PROFILE, FASTING (COMPREHENSIVE METABOLI C) 10/13/2023 CBC WITH AUTO DIFF 10/13/2023 Lipid Panel 10/13/2023 Next Appt Details Follow Up: 4 Months, Reason: OV Provider Name:Jagdish Forde , 12/14/2024 11:00:00 AM, [address] [place] [address] [address], [place], [address], Provider Name:Jagdish Forde , 06/13/2025 11:00:00 AM, [address] [place] [address] [place], [address], Progress Notes * Alton PARKER:1960 (63 yo F)Acc No.[id number]:10/13/2023 Progress Notes Patient: Lore Jauregui Provider: Jenna Forde MD :1960 A ge:63 Y S ex:Female Date:10/13/2023 Address:[address] [place], [place] [id number] Subjective: * Chief Complaints: * P ositive cologard testHyperlipidemiaTobacco dependenceUnderweightThrombocytosisHyperlipidemia * HPI: C OVID-19 Screenin cigs pos cologard, declines colonoscopy and statin. She returns to the office for a scheduled visit for medical management. She has continued to smoke cigarettes dating that she consumes on the average of 7 cigarettes per day. We have discussed smoking cessation techniques at length today. She did not wish a referral to any of these programs. She underwent colorectal cancer screening on July 02, 2023 with the submission of a colo-guard tests. On July 10, 2023 the test result was returned as positive. I discussed this with her at that time and recommended she undergo colonoscopy. She refused to do so stating emphatically that she did not wish to have that test done. I discussed this with her again today and told her that a positive test may indicate the presence of a potentially curable colon cancer aren't advanced polyp with dysplasia they could become a malignancy. Once again she completely and emphatically refused a referral for a colonoscopy. She simply stated that she did not wish to have that test done. Her mental status appears to be normal. She is cognitively intact. She appears to be completely able to make decisions on her own behalf. Her blood work was reviewed with her. Her total cholesterol is significantly elevated. I discussed with her that this raised her risk of stroke and heart attack and atherosclerosis. I strongly recommended a statin medication such as a tour of a statin. I described the risks and benefits and all of the potential side effects. She has declined my offer of the prescription of a statin medication stating that she does not wish to take this medication. As with the colo-guard test, she appears to be mentally competent to make decisions. Questions H ave you experienced fever, chills, cough, sore throat, shortness of breath, difficulty breathing, muscle aches, loss of taste or smell? N o H ave you been exposed to the virus within the last 10 days? N o H ave you travelled internationally in the last 10 days? N o H ave you been exposed to COVID-19 in the past? N o * ROS: G eneral/Constitutional: pain o nly normal aches and pains. C hills d enies.?Fatigue a dmits. F ever d enies. E [...] Muscle aches d enies. P ainful joints d enies. S ciatica d enies. W eakness d [...] Family History: F ather: 63 yrs, CAD, [place], diabetes, diagnosed with CVD, DM. M other: 73 yrs, hypertension, colon cancer, [...] User L ight cigarette smoker ((1-9 cigs/day) S he is single with one daughter. 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 She was born and [place], [place]. She declines to have a colonoscopy. * Medications: N one * Allergies: N o Known Drug Allergyno[Allergies Verified] Objective: * Vitals: H t: 68, Wt:123, BMI:18.70, BP: 134/82, HR: 90, Temp:97.3. * P ast Orders: Lab:Lipid Panel * Order Date 09/29/2023 05/28/2023 12/23/2022 Triglycerides 104 (Ref Range: <150 mg/dL) 91 (Ref Range: <150 mg/dL) 102 (Ref Range: <150 mg/dL) Cholesterol 281 H (Ref Range: <200 mg/dL) 272 H (Ref Range: <200 mg/dL) 275 H (Ref Range: <200 mg/dL) LDL Cholesterol Calculated 172 H (Ref Range: <100 mg/dL) 172 H (Ref Range: <100 mg/dL) 181 H (Ref Range: <100 mg/dL) HDL Cholesterol 89 (Ref Range: >40 mg/dL) 82 (Ref Range: >40 mg/dL) 74 (Ref Range: >40 mg/dL) * Lab:[facility] [place]. Pane l Fast * Order Date 09/29/2023 05/28/2023 12/23/2022 Sodium 140 (Ref Range: 135-145 mmol/L) 139 (Ref Range: 135-145 mmol/L) 142 (Ref Range: 135-145 mmol/L) Bilirubin Total 0.6 (Ref Range: 0.0-1.0 mg/dL) 0.7 (Ref Range: 0.0-1.0 mg/dL) 0.6 (Ref Range: 0.0-1.0 mg/dL) Aspartate Amino Transferase 31 (Ref Range: 5-31 U/L) 26 (Ref Range: 5-31 U/L) 28 (Ref Range: 5-31 U/L) Alanine Aminotransferase 21 (Ref Range: 0-31 U/L) 20 (Ref Range: 0-31 U/L) 25 (Ref Range: 0-31 U/L) Total Protein 7.8 (Ref Range: 6.5-8.0 g/dL) 7.5 (Ref Range: 6.5-8.0 g/dL) 7.7 (Ref Range: 6.5-8.0 g/dL) Albumin Level 4.6 (Ref Range: 3.5-5.0 g/dL) 4.4 (Ref Range: 3.5-5.0 g/dL) 4.5 (Ref Range: 3.5-5.0 g/dL) Alkaline Phosphatase 67 (Ref Range: 39-117 U/L) 60 (Ref Range: 39-117 U/L) 65 (Ref Range: 39-117 U/L) Potassium 4.2 (Ref Range: 3.3-5.1 mmol/L) 4.3 (Ref Range: 3.3-5.1 mmol/L) 4.1 (Ref Range: 3.3-5.1 mmol/L) Chloride 98 (Ref Range: 96-108 mmol/L) 98 (Ref Range: 96-108 mmol/L) 102 (Ref Range: 96-108 mmol/L) Carbon Dioxide 31 H (Ref Range: 22-29 mmol/L) 32 H (Ref Range: 22-29 mmol/L) 28 (Ref Range: 22-29 mmol/L) Anion Gap 15 (Ref Range: 12-20) 13 (Ref Range: 12-20) 16 (Ref Range: 12-20) Blood Urea Nitrogen 9 (Ref Range: 9-16 mg/dL) 10 (Ref Range: 9-16 mg/dL) 9 (Ref Range: 9-16 mg/dL) Creatinine 0.66 (Ref Range: 0.5-1.4 mg/dL) 0.63 (Ref Range: 0.5-1.4 mg/dL) 0.61 (Ref Range: 0.5-1.4 mg/dL) Estimated Glomerular Filt Rate > 60 > 60 > 60 Glucose Fasting 132 H (Ref Range: 60-99 mg/dL) 132 H (Ref Range: 60-99 mg/dL) 128 H (Ref Range: 60-99 mg/dL) Calcium 9.7 (Ref Range: 8.4-10.2 mg/dL) 9.5 (Ref Range: 8.4-10.2 mg/dL) 9.8 (Ref Range: 8.4-10.2 mg/dL) * Lab:Complete Blood Count Aut o Diff * Order Date 09/29/2023 05/28/2023 11/18/2022 White Blood Count 13.1 H (Ref Range: 4.8-10.8 X10*3/uL) 13.3 H (Ref Range: 4.8-10.8 X10*3/uL) 12.2 H (Ref Range: 4.8-10.8 X10*3/uL) Red Blood Count 4.29 (Ref Range: 4.20-5.50 X10*6/uL) 4.38 (Ref Range: 4.20-5.50 X10*6/uL) 4.47 (Ref Range: 4.20-5.50 X10*6/uL) Hemoglobin 14.4 (Ref Range: 12.0-16.0 g/dl) 14.5 (Ref Range: 12.0-16.0 g/dl) 14.8 (Ref Range: 12.0-16.0 g/dl) Hematocrit 42.4 (Ref Range: 37.0-47.0 %) 43.4 (Ref Range: 37.0-47.0 %) 43.5 (Ref Range: 37.0-47.0 %) Mean Corpuscular Volume 98.8 H (Ref Range: 80.0-98.0 fL) 99.1 H (Ref Range: 80.0-98.0 fL) 97.3 (Ref Range: 80.0-98.0 fL) Mean Corpuscular Hemoglobin 33.6 H (Ref Range: 27.0-33.0 pg) 33.1 H (Ref Range: 27.0-33.0 pg) 33.1 H (Ref Range: 27.0-33.0 pg) Mean Corpuscular HGB Conc 34.0 (Ref Range: 31.0-35.0 g/dl) 33.4 (Ref Range: 31.0-35.0 g/dl) 34.0 (Ref Range: 31.0-35.0 g/dl) Red Cell Distribution Width 12.0 (Ref Range: 11.0-16.0 %) 11.9 (Ref Range: 11.0-16.0 %) 11.8 (Ref Range: 11.0-16.0 %) Platelet Count 364 (Ref Range: 160-400 X10*3/uL) 371 (Ref Range: 160-400 X10*3/uL) 376 (Ref Range: 160-400 X10*3/uL) Mean Platelet Volume 10.6 (Ref Range: 9.4-12.3 fL) 10.3 (Ref Range: 9.4-12.3 fL) 10.6 (Ref Range: 9.4-12.3 fL) Neutrophils Percent Auto 81.5 H (Ref Range: 45-73 %) 79.0 H (Ref Range: 45-73 %) 79.6 H (Ref Range: 45-73 %) Imm Gran Pct Auto 0.5 H (Ref Range: 0.0-0.4 %) 0.5 H (Ref Range: 0.0-0.4 %) 0.5 H (Ref Range: 0.0-0.4 %) Lymphocytes Percent Auto 10.0 L (Ref Range: 20-40 %) 11.9 L (Ref Range: 20-40 %) 12.6 L (Ref Range: 20-40 %) Monocytes Percent Auto 6.1 (Ref Range: 2-11 %) 6.6 (Ref Range: 2-11 %) 5.4 (Ref Range: 2-11 %) Eosinophils Percent Auto 1.1 (Ref Range: 0-4 %) 1.4 (Ref Range: 0-4 %) 1.2 (Ref Range: 0-4 %) Basophils Percent Auto 0.8 (Ref Range: 0-2 %) 0.6 (Ref Range: 0-2 %) 0.7 (Ref Range: 0-2 %) NRBC Pct Auto 0.0 (Ref Range: 0.0-0.2 /100WBC) 0.0 (Ref Range: 0.0-0.2 /100WBC) 0.0 (Ref Range: 0.0-0.2 /100WBC) Neutrophils Absolute Auto 10.7 H (Ref Range: 2.0-8.3 x10*3/uL) 10.5 H (Ref Range: 2.0-8.3 x10*3/uL) 9.7 H (Ref Range: 2.0-8.3 x10*3/uL) Imm Gran Abs Auto 0.07 H (Ref Range: 0.00-0.03 X10*3/uL) 0.06 H (Ref Range: 0.00-0.03 X10*3/uL) 0.06 H (Ref Range: 0.00-0.03 X10*3/uL) Lymphocytes Absolute Auto 1.3 (Ref Range: 1.2-4.9 X10*3/uL) 1.6 (Ref Range: 1.2-4.9 X10*3/uL) 1.5 (Ref Range: 1.2-4.9 X10*3/uL) Monocytes Absolute Auto 0.8 (Ref Range: 0.1-1.2 X10*3/uL) 0.9 (Ref Range: 0.1-1.2 X10*3/uL) 0.7 (Ref Range: 0.1-1.2 X10*3/uL) Eosinophils Absolute Auto 0.1 (Ref Range: 0.0-0.4 X10*3/uL) 0.2 (Ref Range: 0.0-0.4 X10*3/uL) 0.1 (Ref Range: 0.0-0.4 X10*3/uL) Basophils Absolute Auto 0.1 (Ref Range: 0.0-0.2 X10*3/uL) 0.1 (Ref Range: 0.0-0.2 X10*3/uL) 0.1 (Ref Range: 0.0-0.2 X10*3/uL) NRBC Abs Auto 0.000 (Ref Range: 0.0-0.012 X10*3/uL) 0.000 (Ref Range: 0.0-0.012 X10*3/uL) 0.000 (Ref Range: 0.0-0.012 X10*3/uL) * Examination: G eneral Examination: GENERAL APPEARANCE: p leasant, well nourished, well developed, in no acute distress, calm and relaxed , underweight , woman. HEAD: a traumatic, normocephalic. EYES: e emily, perrla, anicteric, conjugate. EARS: n ormal. NOSE: s eptum intact. ORAL CAVITY: n ormal, unremarkable. NECK/THYROID: n o jugular venous distention, no carotid bruit, thyroid normal. LYMPH NODES: n o enlarged lymph nodes,spleen normal. SKIN: n o suspicious lesions, anicteric. HEART: n o clicks, gallops, murmurs, or rubs, regular rhythm, S1, S2 normal, no s3, or vascular bruits. LUNGS: c lear to auscultation . BREASTS: n ot examined. ABDOMEN: b owel sounds normal, no ascites, no organomegaly, no mass, Underweight. RECTAL EXAM: n ot examined. MUSCULOSKELETAL: e xtremities unremarkable, no clubbing, cyanosis or edema. PERIPHERAL PULSES: n ormal. NEUROLOGIC: a lert and oriented, cranial nerves 2-12 grossly intact, deep tendon reflexes 2+ symmetrical, motor strength normal upper and lower extremities, sensory exam intact. PSYCH: a lert, oriented to person place and time , anxious appearing , speech clear , good eye contact , cooperative with exam , cognitive function intact, able to make decisions on her own behalf. Assessment: * Assessment: 1. M ixed hyperlipidemia - E78.2 (Primary), Her fasting lipid profile shows an elevated risk of atherosclerosis. I have strongly recommended statin therapy. Once again, she has declined the use of drugs to reduce her lipids. I have reviewed with her the elements of a lipid lowering diet. Her body mass index is 18. She is significantly underweight. I reviewed Risser a diet that contains 3 healthy meals a day. The fasting glucose of 132 was also discussed. 2 . U nderweight - R63.6, Her body mass index is 18. She is underweight. I recommended weight gain through a healthy Mediterranean diet low in animal fat and concentrated sweets. Her fasting glucose of 132 was noted. 3 .?Tobacco dependence - F17.200, She continues to smoke on a daily basis. I've discussed with her the health consequences of doing so. I have made her aware of the smoking cessation program to the community at the local hospital. I have referred her to smoke Elizabeth. 4 . T hrombocytosis - D47.3, Her platelet count is 376,000. This problem has resolved. 5 . N oncompliance - Z91.199, She has declined to have a colonoscopy or to be treated with a statin medication. This is well within her rights. She has made an Informed decision after being presented with adequate information about the risks and benefits and rationale for these recommendations. She was reassured today that if she changes her mind these treatments will still be available. 6 . P ositive colorectal cancer screening using Cologuard test - R19.5, This test was submitted July 01 and reported July 10, 2023. It was reported to be positive. She was informed of this in July of this year and declined to undergo colonoscopy. Today, she declines colonoscopy again after a long discussion of the risks and benefits and rationale for the procedure. She is well aware that she could have dysplasia and a polyp or a small malignancy that could be cured now and that may not be curable and the future. Nonetheless, she has declined to undergo colonoscopy stating she does not wish to have this procedure done. She gave no other explanation despite an extensive discussion. Plan: * Treatment: 2. U nderweight L AB: PROFILE, FASTING (COMPREHENSIVE METABOLIC) L AB: CBC WITH AUTO DIFF L AB: Lipid Panel * Procedure Codes: * Preventive Medicine: Counseling: C are goal [...] tobacco use and urged to quit. 0 10/13/2023 Patient Lifestyle Goals P atient wants to quit Treatment Goals C ut down by 1 cigarette a week, Set a quit date Barriers S ocial smoker, Stress Self-Management Plan M abby a plan to cut down number of cigarettes over time and set a date to work towards quitting * Follow Up: 4 Months (Reason: OV) * Images: * Sign off status: Completed true * Provider: Jenna Forde MD Date: 0 10/13/2023 Generated for Everton rivas/Devorah/Leahitting on: 0 11/30/2024 12:47 PM EDT History and Physical Notes * HPI (History of Present Illness) Category Sub-Category Detail Notes COVID-19 Screening Questions Have you had any new onset fever, chills, cough, congestion, sore throat, shortness of breath, muscle aches?: No Have you been exposed to the virus withi n the last 10 days?: No Have you travelled internationally in [facility] last 10 days?: No Have you been exposed to COVID-19 in the past?: No Examination Category Sub-Category Detail Notes General Examination GENERAL APPEARANCE: pleasant , well nourished, well developed, in no acute distress, calm and relaxed , underweight , woman HEAD: atraumatic, normocep halic EYES: [...] lesion s, anicteric PERIPHERAL PULSES: normal BREASTS: not examined MUSCULOSKELETAL: extremities unremark able, no clubbing, cyanosis or edema LYMPH NODES: no enlarged lymph no gabrielle,spleen normal RECTAL EXAM: not examined PSYCH: alert, oriented to p erson place and time , anxious appearing , speech clear , good eye contact , cooperative with exam , cognitive function intact, able to make decisions on her own behalf ORAL CAVITY: normal, unremarkable
--- OUTSIDE RECORDS SUMMARY | 2024-02-12 07:00 | XMS_ITS ---
Author Organization Jagdish Forde III, MD Address [address] [place] [address] [place] [address] Care Team Providers Care Brushing Machine Operator Name Role Phone Dr. Jagdish Forde III Primary Care Provider [phone] Allergies Allergen (clinical drug ingredient) Drug/Non Drug [...] Date Provider Diagnosis Jagdish Forde III, MD [address] [place] [address] DR [place], [place] [phone] 02/12/2024 Jagdish Forde Mixed hyperlipidemia E78.2 ; [...] hospital. I have referred her to smoke [place]. 02/12/2024 Thrombocytosis (ICD-10 - D47.3) Her platelet [...] Lenore son: OV Provider Name:Jagdish Forde , 12/14/2024 11:00:00 AM, [address] [place] [address] [address], [place], [address], Provider Name:Jagdish Forde , 06/13/2025 11:00:00 AM, [address] [facility] [place], [address], Progress Notes * Tapan PARKERAnabelaB:1960 (63 yo F)Acc No.[id number]:02/12/2024 Progress Notes Patient: Lore VALDEZ Provider: Jenna Forde MD :1960 A ge:63 Y S ex:Female Date:02/12/2024 Address:[address] [place], [place] [id number] Subjective: * Chief Complaints: * T obacco [...] Family History: F ather: 62 yrs, CAD, [place], diabetes, diagnosed with DM, CVD. M other: [...] with one daughter. 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 She declines to have a colonoscopy. * Medications: N one * Allergies: N o Known Drug Allergyno[Allergies Verified] Objective: * Vitals: H t: 68, Wt: 133, BMI:20.22, BP: 138/80, HR: 84, Temp: 97.1, Wt-k.33. * P ast Orders: Lab:Comprehensive [place]. [place] * Collection Date 02/02/2024 [...] MD Date: 1 04/14/2023 Generated for Everton rivas/Devorah/Leahitting on: 0 11/30/2024 [...]
--- OUTSIDE RECORDS SUMMARY | 2024-06-11 07:00 | XMS_ITS ---
Author Organization Jagdish Forde III, MD Address [address] [place] [address] Care Team Providers Care Senior Revenue Accountant Name Role Phone Dr. Jagdish Forde III Primary Care Provider [phone] Allergies Allergen (clinical drug ingredient) Drug/Non Drug Allergy documented on EMR Reaction Allergy Type Onset Date Status No Known Drug Allergy Unknown Drug Allergy Active Results Component Value Reference Range Notes URINE DIP STICK Reviewed date:06/11/2024 11:17:18 AM Interpretation: Performing Lab: Notes/Report: SG 1.010 1.005 - 1.025 pH 6.0 5.0 - 9.0 MAYELIN Negative Negative - NIT Negative Negative - PRO 15 Negative - Trace GLU Negative Negative - KET 15 Negative - UBG 0.2 0.1 - 1.8 DARLING Negative 0.2 - 1.3 BLD 5-10 Negative - REASON FOR VISIT annual visit Social History Tobacco Use: Social History Observation Description Date Details (start date - stop date) Current Smoker NA - NA Sex Assigned At : Social History Observation Description Sex Assigned At Female Tobacco Control (Standard) Question Answer Notes Tobacco use: Current smoker How often do you smoke cigarettes? Every day How many cigarettes a day do you smoke? 6-10 How soon after you wake up d o you smoke your first cigarette? 31-60 minutes Are you interested in quitting? Thinking about q uitting Additional Findings: Tobacco user Light cigarett e smoker (1-9 cigs/day) AUDIT-C (Standard) Question Answer Notes Did you have a drink containing alcohol in the p ast year? No Points 0 Interpretation Negative Vital Signs Temperature 98.4 degrees Fahrenheit 06/12/19 25 Blood pressure systolic 130 mm Hg 06/12/19 25 Blood pressure diastolic 74 mm Hg 025 Heart Rate 78 /min 06/11/2024 Height 68 in 06/11/2024 Weight 133 lbs 06/11/2024 BMI 20.22 kg/m2 06/11/2024 Encounters Encounter Location Date Provider Diagnosis Jagdish Forde III, MD [address] [place] [address] [place] [address] 06/11/2024 Jagdish Forde Mixed hyperlipidemia E78.2 ; Tobacco dependence F17.200 ; Postmenopausal Z78.0 ; History of psoriasis Z87.2 ; Edentulous maxilla K08.409 ; Hyperglycemia R73.9 ; Cough R05 and Thrombocytosis D47.3 Assessments Encounter Date Diagnosis (ICD Code) Assessment Notes T reatment Notes Treatment Clinical Notes 06/11/2024 Mixed hyperlipidemia (ICD-10 - E78.2) Her LDL is 50. Her total cholesterol has declined from 281 to its current value of 249. I have offered to give her statin medication but she adamantly declines to take any medication at this time. We discussed the risks of an elevated cholesterol and her family history of cardiovascular disease today at length. 06/11/2024 Tobacco dependence (ICD-10 - F17.200) She continues to smoke on a daily basis. I've discussed with her the health consequences of doing so. I have made her aware of the smoking cessation program to the community at the local hospital. I have referred her to smoke [place]. 06/11/2024 Postmenopausal (ICD-10 - Z78.0) She has agreed to have a bone density test every 2 years. She has not had any periods since her last visit. 06/11/2024 History of psoriasis (ICD-10 - Z87.2) Psoriasis was minimal today in no change in therapy was necessary. 06/11/2024 Edentulous maxilla (ICD-10 - K08.409) She says the denture fits poorly and she is going to see the dentist next week for an adjustment. 06/11/2024 Hyperglycemia (ICD-10 - R73.9) Her fasting glucose is 131. She continues in the prediabetic range. She declines to take any medication for her blood glucose levels. I have ordered a hemoglobin A1c to further characterize this. She will have a microalbumin.We have discussed at length the long-term consequences of untreated diabetes which include neuropathy renal failure or adenopathy immunosuppression weight loss etc. 06/11/2024 Cough (ICD-10 - R05) She continu es to have mild nonproductive cough, which is likeely due to smoking some tobaccco. 06/11/2024 Thrombocytosis (ICD-10 - D47.3) Her platelet count is 352,000. This problem has resolved. Plan Of Treatment Pending Test Test Name Order Date PROFILE, FASTING (COMPREHENSIVE METABOLI C) 06/11/2024 CBC w DIFF 06/11/2024 Lipid Panel 06/11/2024 Hemoglobin A1c 06/11/2024 Next Appt Details Follow Up: 6 Months, Reason: OV Provider Name:Jagdish Forde , 12/14/2024 11:00:00 AM, [address] [place] [address] [address], [place], [phone], Provider Name:Jagdish Forde , 06/13/2025 11:00:00 AM, [address] [place] [address] [address], [place], [phone], Progress Notes * GRACEMIKE TapanaDOB:1960 (63 yo F)Acc No.[id number]:06/11/2024 Progress Notes Patient: Lore VALDEZ Provider: Jenna Forde MD :1960 A ge:63 Y S ex:Female Date:06/11/2024 Address:[address] [place] [address] [place], [id number] Subjective: * Chief Complaints: * A nnual visit * HPI: D epression Screening: She returns to the office at the age of 63 for her annual physical examination.She has continued to smoke a half a package of cigarettes per day and is actively trying to reduce this. Her psoriasis has been minimal and is limited to a few patches. Her dentures fit well and she has no difficulty with protrusion. Her chronic cough has resolved. She has had no gastrointestinal symptoms.Her blood pressure is in the normal range. Her body mass index is now 90 and she is no longer overweight gained several pounds. Her appetite is good and she feels generally well. She denies any difficulty breathing. Her fasting total cholesterol was elevated and has been. Once again I discussed with her the use of a statin drug to reduce her total cholesterol to reduce the risk of cardiovascular events and atherosclerosis. She said she would think about it but did not agree to take a statin. She says she does not believe in taking medications for cholesterol. We discussed smoking cessation and also at length today. She agrees with the with still not smoking and will continue her efforts to assist to reduce her tobacco use. PHQ-9 L ittle interest or pleasure in [...] all T otal Score 0 C OVID-19 Screenin cig a day, mammo due next oct. psoriasis minimal, declines statin, requested nicotine patches insisted on otc. Questions H ave you had any new onset fever, chills, cough, congestion, sore throat, shortness of breath, muscle aches? N o S DOUGIE Questions: SDOH Questions I n [...] of breath d enies. G astrointestinal: Constipation d enies. D ecreased appetite d enies.?Diarrhea d enies. H eartburn o ccasional. N ausea d enies. R ectal bleeding d enies. V omiting d enies. H ematology: bruising d enies. p etechiae d enies. S wollen glands n one have been noted. G enitourinary: Frequent urination d enies. M usculoskeletal: Muscle aches d enies. P ainful joints d enies. S ciatica d enies. W eakness d enies. S kin: Itching d enies. R uli d enies. S kin lesion(s)?denies. N eurologic: Difficulty speaking d enies. D izziness d enies.?Headache d enies. L ow back pain d enies. P sychiatric: Depressed mood w hich is mild. * Medical History: * Surgical History: u pper teeth extraction 2017resection inclusion cyst, left chin is a lump in declines colonoscopy * Hospitalization/Major Diagno stic Procedure: D enies Past Hospitalization * Family History: F ather: 62 yrs, CAD, [place], diabetes, diagnosed with CVD, DM. M other: 73 yrs, hypertension, colon cancer, diagnosed with HTN, Cancer. 1 daughter(s) - healthy. . She has no biological siblings but has 3 stepbothers and 3 stepsisters. Her daughter is well. * Social History: T obacco Use: T obacco Control (Standard) T obacco use: C urrent smoker H ow often do you smoke cigarettes? E very day H ow many cigarettes a day do you smoke? 6 -10 H ow soon after you wake up do you smoke your first cigarette? 3 1-60 minutes A re you interested in quitting? T hinking about quitting A dditional Findings: Tobacco user L ight cigarette smoker (1-9 cigs/day) D rugs/Alcohol: D rugs H ave you used drugs other than those for medical reasons in the past 12 months? N o D rug/Alcohol: A LETTY-C (Standard) D id you have a drink containing alcohol in the past year? N o P oints 0 I nterpretation N egative S he is single with one daughter. 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 She was born and [place], [place]. She declines to have a colonoscopy. * Medications: N one * Allergies: N o Known Drug Allergyno[Allergies Verified] Objective: * Vitals: H t: 68, Wt: 133, BMI:20.22, BP: 130/74, HR: 78, Temp: 98.4, Wt-k.33. * P ast Orders: L ab:Hemoglobin A1c (Order Date - 05/27/2024) (Collection Date & Time - 05/27/2024 11:17 AM) Value Reference Range Hemoglobin A1c % 5.1 <6.0 - % Estimated Average Glucose 100 - mg/dL Lab:Lipid Panel * Collection Date 05/27/2024 02/02/2024 09/29/2023 Collection Time 11:17 AM 11:04 AM 12:05 PM Order Date 05/27/2024 02/02/2024 09/29/2023 Triglycerides 98 (Ref Range: <150 mg/dL) 104 (Ref Range: <150 mg/dL) 104 (Ref Range: <150 mg/dL) Cholesterol 279 H (Ref Range: <200 mg/dL) 249 H (Ref Range: <200 mg/dL) 281 H (Ref Range: <200 mg/dL) LDL Cholesterol Calculated 175 H (Ref Range: <100 mg/dL) 150 H (Ref Range: <100 mg/dL) 172 H (Ref Range: <100 mg/dL) HDL Cholesterol 85 (Ref Range: >40 mg/dL) 79 (Ref Range: >40 mg/dL) 89 (Ref Range: >40 mg/dL) * Lab:Comprehensive [place]. Pane l Fast * Collection Date 05/27/2024 02/02/2024 09/29/2023 Collection Time 11:17 AM 11:04 AM 12:05 PM Order Date 05/27/2024 02/02/2024 09/29/2023 Sodium 141 (Ref Range: 135-145 mmol/L) 140 (Ref Range: 135-145 mmol/L) 140 (Ref Range: 135-145 mmol/L) Bilirubin Total 0.7 (Ref Range: 0.0-1.0 mg/dL) 0.7 (Ref Range: 0.0-1.0 mg/dL) 0.6 (Ref Range: 0.0-1.0 mg/dL) Aspartate Amino Transferase 63 H (Ref Range: 5-31 U/L) 47 H (Ref Range: 5-31 U/L) 31 (Ref Range: 5-31 U/L) Alanine Aminotransferase 54 H (Ref Range: 0-31 U/L) 25 (Ref Range: 0-31 U/L) 21 (Ref Range: 0-31 U/L) Total Protein 8.0 (Ref Range: 6.5-8.0 g/dL) 7.6 (Ref Range: 6.5-8.0 g/dL) 7.8 (Ref Range: 6.5-8.0 g/dL) Albumin Level 4.4 (Ref Range: 3.5-5.0 g/dL) 4.3 (Ref Range: 3.5-5.0 g/dL) 4.6 (Ref Range: 3.5-5.0 g/dL) Alkaline Phosphatase 93 (Ref Range: 39-117 U/L) 81 (Ref Range: 39-117 U/L) 67 (Ref Range: 39-117 U/L) Potassium 4.5 (Ref Range: 3.3-5.1 mmol/L) 4.4 (Ref Range: 3.3-5.1 mmol/L) 4.2 (Ref Range: 3.3-5.1 mmol/L) Chloride 100 (Ref Range: 96-108 mmol/L) 99 (Ref Range: 96-108 mmol/L) 98 (Ref Range: 96-108 mmol/L) Carbon Dioxide 29 (Ref Range: 22-29 mmol/L) 29 (Ref Range: 22-29 mmol/L) 31 H (Ref Range: 22-29 mmol/L) Anion Gap 17 (Ref Range: 12-20) 16 (Ref Range: 12-20) 15 (Ref Range: 12-20) Blood Urea Nitrogen 10 (Ref Range: 9-16 mg/dL) 11 (Ref Range: 9-16 mg/dL) 9 (Ref Range: 9-16 mg/dL) Creatinine 0.62 (Ref Range: 0.5-1.4 mg/dL) 0.68 (Ref Range: 0.5-1.4 mg/dL) 0.66 (Ref Range: 0.5-1.4 mg/dL) Estimated Glomerular Filt Rate > 60 > 60 > 60 Glucose Fasting 136 H (Ref Range: 60-99 mg/dL) 131 H (Ref Range: 60-99 mg/dL) 132 H (Ref Range: 60-99 mg/dL) Calcium 9.5 (Ref Range: 8.4-10.2 mg/dL) 9.8 (Ref Range: 8.4-10.2 mg/dL) 9.7 (Ref Range: 8.4-10.2 mg/dL) * Lab:Complete Blood Count Aut o Diff * Collection Date 05/27/2024 02/02/2024 09/29/2023 Collection Time 11:17 AM 11:04 AM 12:05 PM Order Date 05/27/2024 02/02/2024 09/29/2023 White Blood Count 11.7 H (Ref Range: 4.8-10.8 X10*3/uL) 13.9 H (Ref Range: 4.8-10.8 X10*3/uL) 13.1 H (Ref Range: 4.8-10.8 X10*3/uL) Red Blood Count 4.37 (Ref Range: 4.20-5.50 X10*6/uL) 4.17 L (Ref Range: 4.20-5.50 X10*6/uL) 4.29 (Ref Range: 4.20-5.50 X10*6/uL) Hemoglobin 14.4 (Ref Range: 12.0-16.0 g/dl) 13.9 (Ref Range: 12.0-16.0 g/dl) 14.4 (Ref Range: 12.0-16.0 g/dl) Hematocrit 42.8 (Ref Range: 37.0-47.0 %) 41.1 (Ref Range: 37.0-47.0 %) 42.4 (Ref Range: 37.0-47.0 %) Mean Corpuscular Volume 97.9 (Ref Range: 80.0-98.0 fL) 98.6 H (Ref Range: 80.0-98.0 fL) 98.8 H (Ref Range: 80.0-98.0 fL) Mean Corpuscular Hemoglobin 33.0 (Ref Range: 27.0-33.0 pg) 33.3 H (Ref Range: 27.0-33.0 pg) 33.6 H (Ref Range: 27.0-33.0 pg) Mean Corpuscular HGB Conc 33.6 (Ref Range: 31.0-35.0 g/dl) 33.8 (Ref Range: 31.0-35.0 g/dl) 34.0 (Ref Range: 31.0-35.0 g/dl) Red Cell Distribution Width 12.5 (Ref Range: 11.0-16.0 %) 11.9 (Ref Range: 11.0-16.0 %) 12.0 (Ref Range: 11.0-16.0 %) Platelet Count 352 (Ref Range: 160-400 X10*3/uL) 381 (Ref Range: 160-400 X10*3/uL) 364 (Ref Range: 160-400 X10*3/uL) Mean Platelet Volume 10.5 (Ref Range: 9.4-12.3 fL) 10.3 (Ref Range: 9.4-12.3 fL) 10.6 (Ref Range: 9.4-12.3 fL) Neutrophils Percent Auto 74.5 H (Ref Range: 45-73 %) 81.0 H (Ref Range: 45-73 %) 81.5 H (Ref Range: 45-73 %) Imm Gran Pct Auto 0.5 H (Ref Range: 0.0-0.4 %) 0.4 (Ref Range: 0.0-0.4 %) 0.5 H (Ref Range: 0.0-0.4 %) Lymphocytes Percent Auto 14.0 L (Ref Range: 20-40 %) 9.9 L (Ref Range: 20-40 %) 10.0 L (Ref Range: 20-40 %) Monocytes Percent Auto 8.0 (Ref Range: 2-11 %) 6.8 (Ref Range: 2-11 %) 6.1 (Ref Range: 2-11 %) Eosinophils Percent Auto 2.1 (Ref Range: 0-4 %) 0.9 (Ref Range: 0-4 %) 1.1 (Ref Range: 0-4 %) Basophils Percent Auto 0.9 (Ref Range: 0-2 %) 1.0 (Ref Range: 0-2 %) 0.8 (Ref Range: 0-2 %) NRBC Pct Auto 0.0 (Ref Range: 0.0-0.2 /100WBC) 0.0 (Ref Range: 0.0-0.2 /100WBC) 0.0 (Ref Range: 0.0-0.2 /100WBC) Neutrophils Absolute Auto 8.7 H (Ref Range: 2.0-8.3 x10*3/uL) 11.3 H (Ref Range: 2.0-8.3 x10*3/uL) 10.7 H (Ref Range: 2.0-8.3 x10*3/uL) Imm Gran Abs Auto 0.06 H (Ref Range: 0.00-0.03 X10*3/uL) 0.05 H (Ref Range: 0.00-0.03 X10*3/uL) 0.07 H (Ref Range: 0.00-0.03 X10*3/uL) Lymphocytes Absolute Auto 1.6 (Ref Range: 1.2-4.9 X10*3/uL) 1.4 (Ref Range: 1.2-4.9 X10*3/uL) 1.3 (Ref Range: 1.2-4.9 X10*3/uL) Monocytes Absolute Auto 0.9 (Ref Range: 0.1-1.2 X10*3/uL) 0.9 (Ref Range: 0.1-1.2 X10*3/uL) 0.8 (Ref Range: 0.1-1.2 X10*3/uL) Eosinophils Absolute Auto 0.3 (Ref Range: 0.0-0.4 X10*3/uL) 0.1 (Ref Range: 0.0-0.4 X10*3/uL) 0.1 (Ref [...] eptum intact. ORAL CAVITY: n ormal, unremarkable, Edentulous. NECK/THYROID: n o jugular venous distention, no carotid bruit, thyroid normal. LYMPH NODES: n o enlarged lymph nodes,spleen normal. SKIN: n o suspicious lesions, anicteric. HEART: n o clicks, gallops, murmurs, or rubs, regular rhythm, S1, S2 normal, no s3, or vascular bruits. LUNGS: c lear to auscultation . BREASTS: N ot examined, Patient declined breast exam, prefers [employer] [facility]. ABDOMEN: b owel sounds normal, no ascites, no organomegaly, no mass. RECTAL EXAM: n ot examined. MUSCULOSKELETAL: e xtremities unremarkable, no clubbing, cyanosis or edema. PERIPHERAL PULSES: n ormal. NEUROLOGIC: a lert and oriented, cranial nerves 2-12 grossly intact, deep tendon reflexes 2+ symmetrical, motor strength normal upper and lower extremities, sensory exam intact. PSYCH: a lert, oriented. Assessment: * Assessment: 1. M ixed hyperlipidemia [...] cardiovascular disease today at length. 2 . T obacco dependence - F17.200 N otes :She continues to smoke on a daily basis. I've discussed with her the health consequences of doing so. I have made her aware of the smoking cessation program to the community at the local hospital. I have referred her to smoke [place]. 3 . P ostmenopausal - Z78.0 N otes :She has agreed to have a bone density test every 2 years. She has not had any periods since her last visit. 4 . H istory of psoriasis - Z87.2 N otes :Psoriasis was minimal today in no change in therapy was necessary. 5 . E dentulous maxilla - K08.409 N otes :She says the denture fits poorly and she is going to see the dentist next week for an adjustment. 6 . H yperglycemia - R73.9 N otes [...] failure or adenopathy immunosuppression weight loss etc. 7 . C ough - R05 N otes :She continues to have mild nonproductive cough, which is likeely due to smoking some tobaccco. 8 . T hrombocytosis - D47.3 N otes :Her platelet count is 352,000. This problem has resolved. Plan: * Treatment: * Labs: * L ab: URINE DIP STICK (Collection Date & Time - 06/11/2024) Value Reference Range S G 1.010 1.005 - 1.025 * p H 6.0 5.0 - 9.0 * L EU Negative Negative - * N IT Negative Negative - * P RO 15 Negative - Trace * G EDNA Negative Negative - * K ET 15 Negative - * U BG 0.2 0.1 - 1.8 * B IL Negative 0.2 - 1.3 * B LD 5-10 Negative - * Procedure Codes: 8 1002 URINE-NO MICRO * Preventive Medicine: Counseling: S moking/Tobacco Use Patient counseled on the dangers of tobacco use and urged to quit. 0 06/11/2024 Patient Lifestyle Goals P atient wants to quit Treatment Goals C ut down by 1 cigarette a week, Set a quit date Barriers S ocial smoker, Stress Self-Management Plan M abby a plan to cut down number of cigarettes over time and set a date to work towards quitting * Follow Up: 6 Months (Reason: OV) * Images: * Sign off status: Completed true * Provider: Jenna Forde MD Date: 0 06/11/2024 Generated for Shelleyi ng/Faxing/eTransmitting on: 0 11/30/2024 12:48 PM EDT History and Physical Notes * [...] throat, shortness of breath, muscle aches?: No SDOH Questions SDOH Questions In the past [...] s, anicteric PERIPHERAL PULSES: normal BREASTS: Not examined, Patien t declined breast exam, prefers [employer] [facility] MUSCULOSKELETAL: extremities unremark able, no clubbing, cyanosis or edema LYMPH NODES: no enlarged lymph no gabrielle,spleen normal RECTAL EXAM: not examined PSYCH: alert, oriented ORAL CAVITY: normal, unremarkable , Edentulous
--- OUTSIDE RECORDS SUMMARY | 2024-11-30 12:48 | XMS_ITS | Patient Health Record ---
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 Jagdish Forde III Primary Care Provider Allergies Allergen (clinical drug ingredient) Drug/Non Drug Allergy documented on EMR Reaction Allergy Type Onset Date Status No Known Drug Allergy Unknown Drug Allergy Active Results Component Value Reference Range Notes Complete Blood Count Auto Di ff Reviewed date:02/09/2024 05:33:01 AM Interpretation: Performing Lab:[facility], [address] [place] [phone] Notes/Report: White Blood Count 13.9 4.8-10.8 X10*3/uL Red Blood Count 4.17 4.20-5.50 X10*6/uL Hemoglobin 13.9 12.0-16.0 g/dl Hematocrit 41.1 37.0-47.0 % Mean Corpuscular Volume 98.6 80.0-98.0 fL Mean Corpuscular Hemoglobin 33.3 27.0-33.0 pg Mean Corpuscular HGB Conc 33.8 31.0-35.0 g/dl Red Cell Distribution Width 11.9 11.0-16.0 % Platelet Count 381 160-400 X10*3/uL Mean Platelet Volume 10.3 9.4-12.3 fL Neutrophils Percent Auto 81.0 45-73 % Imm Gran Pct Auto 0.4 0.0-0.4 % Lymphocytes Percent Auto 9.9 20-40 % Monocytes Percent Auto 6.8 2-11 % Eosinophils Percent Auto 0.9 0-4 % Basophils Percent Auto 1.0 0-2 % NRBC Pct Auto 0.0 0.0-0.2 /100WBC Neutrophils Absolute Auto 11.3 2.0-8.3 x10*3/u L Imm Gran Abs Auto 0.05 0.00-0.03 X10*3/uL Lymphocytes Absolute Auto 1.4 1.2-4.9 X10*3/u L Monocytes Absolute Auto 0.9 0.1-1.2 X10*3/uL Eosinophils Absolute Auto 0.1 0.0-0.4 X10*3/u L Basophils Absolute Auto 0.1 0.0-0.2 X10*3/uL NRBC Abs Auto 0.000 0.0-0.012 X10*3/uL Comprehensive [place]. Panel Fa st Reviewed date:02/09/2024 05:33:01 AM Interpretation: Performing Lab:[facility], [address] [place] [phone] Notes/Report: Sodium 140 135-145 mmol/L Potassium 4.4 3.3-5.1 mmol/L Chloride 99 96-108 mmol/L Carbon Dioxide 29 22-29 mmol/L Anion Gap 16 12-20 Blood Urea Nitrogen 11 9-16 mg/dL Creatinine 0.68 0.5-1.4 mg/dL Estimated Glomerular Filt Rate > 60 Chronic Kidney Disease: Estimated GFR < 60 mL/min/1.73m2 Severe Kidney Disease: Estimated GFR < 15 mL/min/1.73m2 Glucose Fasting 131 60-99 mg/dL A fasting glucose of 126 mg/dl or greater on more than one occasion is considered diagnostic of diabetes. Calcium 9.8 8.4-10.2 mg/dL Bilirubin Total 0.7 0.0-1.0 mg/dL Aspartate Amino Transferase 47 5-31 U/L Alanine Aminotransferase 25 0-31 U/L Total Protein 7.6 6.5-8.0 g/dL Albumin Level 4.3 3.5-5.0 g/dL Alkaline Phosphatase 81 39-117 U/L Lipid Panel Reviewed date:02/09/2024 05:33:01 AM Interpretation: Performing Lab:[facility], [address] [place] [phone] Notes/Report: Triglycerides 104 <150 mg/dL Desirable Triglyceride: less than 150 mg/dL Borderline High Triglyceride 150-199 mg/dL High Triglyceride: 200-499 mg/dL Very High Triglyceride: greater than or equal to 5OO mg/dL Cholesterol 249 <200 mg/dL Desirable Cholesterol: less than 200 mg/dL Borderline High Cholesterol: 200-239 mg/dL High Cholesterol: greater than 239 mg/dL LDL Cholesterol Calculated 150 <100 mg/dL Desirable LDL: less than 100 mg/dL Near Optimal/Above Optimal LDL: 110-129 mg/dL Borderline High LDL: 130-159 mg/dL High LDL: 160-189 mg/dL Very High LDL: greater than or equal to 190 mg/dL HDL Cholesterol 79 >40 mg/dL Desirable HDL: greater than 40 mg/dL Note: This HDL assay may give artificially low results in patients with liver disease. Complete Blood Count Auto Di ff Reviewed date:05/29/2024 07:58:28 AM Interpretation: Performing Lab:[facility], [address] [place] [phone] Notes/Report: White Blood Count 11.7 4.8-10.8 X10*3/uL Red Blood Count 4.37 4.20-5.50 X10*6/uL Hemoglobin 14.4 12.0-16.0 g/dl Hematocrit 42.8 37.0-47.0 % Mean Corpuscular Volume 97.9 80.0-98.0 fL Mean Corpuscular Hemoglobin 33.0 27.0-33.0 pg Mean Corpuscular HGB Conc 33.6 31.0-35.0 g/dl Red Cell Distribution Width 12.5 11.0-16.0 % Platelet Count 352 160-400 X10*3/uL Mean Platelet Volume 10.5 9.4-12.3 fL Neutrophils Percent Auto 74.5 45-73 % Imm Gran Pct Auto 0.5 0.0-0.4 % Lymphocytes Percent Auto 14.0 20-40 % Monocytes Percent Auto 8.0 2-11 % Eosinophils Percent Auto 2.1 0-4 % Basophils Percent Auto 0.9 0-2 % NRBC Pct Auto 0.0 0.0-0.2 /100WBC Neutrophils Absolute Auto 8.7 2.0-8.3 x10*3/u L Imm Gran Abs Auto 0.06 0.00-0.03 X10*3/uL Lymphocytes Absolute Auto 1.6 1.2-4.9 X10*3/u L Monocytes Absolute Auto 0.9 0.1-1.2 X10*3/uL Eosinophils Absolute Auto 0.3 0.0-0.4 X10*3/u L Basophils Absolute Auto 0.1 0.0-0.2 X10*3/uL NRBC Abs Auto 0.000 0.0-0.012 X10*3/uL Comprehensive [place]. Panel Fa st Reviewed date:05/29/2024 07:58:28 AM Interpretation: Performing Lab:[address] [phone] Notes/Report: Sodium 141 135-145 mmol/L Potassium 4.5 3.3-5.1 mmol/L Chloride 100 96-108 mmol/L Carbon Dioxide 29 22-29 mmol/L Anion Gap 17 12-20 Blood Urea Nitrogen 10 9-16 mg/dL Creatinine 0.62 0.5-1.4 mg/dL Estimated Glomerular Filt Rate > 60 Chronic Kidney Disease: Estimated GFR < 60 mL/min/1.73m2 Severe Kidney Disease: Estimated GFR < 15 mL/min/1.73m2 Glucose Fasting 136 60-99 mg/dL A fasting glucose of 126 mg/dl or greater on more than one occasion is considered diagnostic of diabetes. Calcium 9.5 8.4-10.2 mg/dL Bilirubin Total 0.7 0.0-1.0 mg/dL Aspartate Amino Transferase 63 5-31 U/L Alanine Aminotransferase 54 0-31 U/L Total Protein 8.0 6.5-8.0 g/dL Albumin Level 4.4 3.5-5.0 g/dL Alkaline Phosphatase 93 39-117 U/L Lipid Panel Reviewed date:05/29/2024 07:58:28 AM Interpretation: Performing Lab:[facility], [address] [place] [phone] Notes/Report: Triglycerides 98 <150 mg/dL Desirable Triglyceride: less than 150 mg/dL Borderline High Triglyceride 150-199 mg/dL High Triglyceride: 200-499 mg/dL Very High Triglyceride: greater than or equal to 5OO mg/dL Cholesterol 279 <200 mg/dL Desirable Cholesterol: less than 200 mg/dL Borderline High Cholesterol: 200-239 mg/dL High Cholesterol: greater than 239 mg/dL LDL Cholesterol Calculated 175 <100 mg/dL Desirable LDL: less than 100 mg/dL Near Optimal/Above Optimal LDL: 110-129 mg/dL Borderline High LDL: 130-159 mg/dL High LDL: 160-189 mg/dL Very High LDL: greater than or equal to 190 mg/dL HDL Cholesterol 85 >40 mg/dL Desirable HDL: greater than 40 mg/dL Note: This HDL assay may give artificially low results in patients with liver disease. Hemoglobin A1c Reviewed date:05/29/2024 07:58:28 AM Interpretation: Performing Lab:[facility], [address] [place] [phone] Notes/Report: Hemoglobin A1c % 5.1 <6.0 % Hemoglobin A1C Reference Range Adults: 4.8 - 6.0 % Non diabetic: < 6.0 % Goal: < 7.0 % Additional Action Suggested: > 8.0 % Note: Hemoglobin A1c results are invalid for patients with abnormal amounts of HbF. Blood transfusions may impact the HbA1c concentration in the patient sample. Estimated Average Glucose 100 eAG = Estimated average glucose which is %A1C expressed as average glucose, using the formula of the U1N-Iimchxb Average Glucose study (ADAG), Diabetes Care, Vol.31,#8, Oct. 2007 URINE DIP STICK Reviewed date:06/11/2024 11:17:18 AM Interpretation: Performing Lab: Notes/Report: SG 1.010 1.005 - 1.025 pH 6.0 5.0 - 9.0 MAYELIN Negative Negative - NIT Negative Negative - PRO 15 Negative - Trace GLU Negative Negative - KET 15 Negative - UBG 0.2 0.1 - 1.8 DARLING Negative 0.2 - 1.3 BLD 5-10 Negative - Reason For Referral No Information Social History Tobacco Use: Social History Observation [...] ast year? No Points 0 Interpretation Negative Problems Problem Type SNOMED Code ICD Code Onset Dates Problem Status W/U Status Risk Notes Problem 89907209 Postmenopausal (Z78.0) Active confirmed She has agreed to have a bone density test every 2 years. She has not had any periods since her last visit. Problem 09206133 Hyperglycemia (R73.9) Active confirmed Her fasting glucose is 131. She continues in the prediabetic range. She declines to take any medication for her blood glucose levels. I have ordered a hemoglobin A1c to further characterize this. She will have a microalbumin.We have discussed at length the long-term consequences of untreated diabetes which include neuropathy renal failure or adenopathy immunosuppression weight loss etc. Problem 293870601 Underweight (R63.6) Active confirmed Her body mass index has reached 20. She is no longer underweight. This value will be observed carefully. Problem Cough (14723619) Cough (R05) Active confirmed She continues to have mild nonproductive cough, which is likeely due to smoking some tobaccco. Problem 3133207 Thrombocytosis (D47.3) Active confirmed Her platelet co unt is 352,000. This problem has resolved. Problem 2035857 Arthritis (M19.90) Active confirmed The inflammatio n in the right hand is improving. Range of motion is preserved. The cause of this is unclear, but not infectious. She will continue with conservative therapy of heat and ibuprofen. I have offered to refer her to rheumatology for evaluation for gout and other etiologies But she declined that today. Problem 909374549 Mixed hyperlipidemia (E78.2) Active confirmed Her LDL is 50. Her total cholesterol has declined from 281 to its current value of 249. I have offered to give her statin medication but she adamantly declines to take any medication at this time. We discussed the risks of an elevated cholesterol and her family history of cardiovascular disease today at length. Problem 91508970 Tobacco dependence (F17.200) Active confirmed She continues t o smoke on a daily basis. I've discussed with her the health consequences of doing so. I have made her aware of the smoking cessation program to the community at the local hospital. I have referred her to [facility]. 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 Problem 630621795 History of psoriasis (Z87.2) Active confirmed Psoriasis was minimal today in no change in therapy was necessary. Problem 903653430 Positive colorectal cancer screening using Cologuard test [...] other explanation despite an extensive discussion. Problem 7905779 Noncompliance (Z91.199) Active confirmed She has decline d to have a colonoscopy or to be treated with a statin medication. This is well within her rights. She has made an Informed decision after being presented with adequate information about the risks and benefits and rationale for these recommendations. She was reassured today that if she changes her mind these treatments will still be available. Vital Signs Heart Rate 78 /min 06/11/2024 Temperature 98.4 degrees Fahrenheit 06/11/2024 Blood pressure diastolic 74 mm Hg 06/11/2024 Height 68 in 06/11/2024 Blood pressure systolic 130 mm Hg 06/11/2024 Weight 133 lbs 06/11/2024 BMI 20.22 kg/m2 06/11/2024 Encounters Encounter Location Date Provider Diagnosis Jagdish Forde III, MD [address] [place] [address] [place] [phone] 02/12/2024 Jagdish Forde Mixed hyperlipidemia E78.2 ; Hyperglycemia R73.9 ; Underweight R63.6 ; Tobacco dependence F17.200 ; Thrombocytosis D47.3 and Edentulous maxilla K08.409 Jagdish Forde III, MD [address] [place] [address] [place] [phone] 06/11/2024 Jadgish Forde Mixed hyperlipidemia E78.2 ; Tobacco dependence F17.200 ; Postmenopausal Z78.0 ; History of psoriasis Z87.2 ; Edentulous maxilla K08.409 ; Hyperglycemia R73.9 ; Cough R05 and Thrombocytosis D47.3 Assessments Encounter Date Diagnosis (ICD Code) Assessment Notes T reatment Notes Treatment Clinical Notes 02/12/2024 Hyperglycemia (ICD-10 - R73.9) Her fasting [...] or adenopathy immunosuppression weight loss etc. 02/12/2024 Mixed hyperlipidemia (ICD-10 - E78.2) Her LDL is 50. Her total cholesterol has declined from 281 to its current value of 249. I have offered to give her statin medication but she adamantly declines to take any medication at this time. We discussed the risks of an elevated cholesterol and her family history of cardiovascular disease today at length. 06/11/2024 Mixed hyperlipidemia (ICD-10 - E78.2) Her [...] I have referred her to smoke [facility]. 02/12/2024 Underweight (ICD-10 - R63.6) Her body mass index has reached 20. She is no longer underweight. This value will be observed carefully. 06/11/2024 Postmenopausal (ICD-10 - Z78.0) She has agreed to have a bone density test every 2 years. She has not had any periods since her last visit. 02/12/2024 Tobacco dependence (ICD-10 - F17.200) She continues to smoke on a daily basis. I've discussed with her the health consequences of doing so. I have made her aware of the smoking cessation program to the community at the local hospital. I have referred her to smoke [facility]. 06/11/2024 History of psoriasis (ICD-10 - Z87.2) Psoriasis was minimal today in no change in therapy was necessary. 02/12/2024 Thrombocytosis (ICD-10 - D47.3) Her platelet count is 381,000. This problem has resolved. 06/11/2024 Edentulous maxilla (ICD-10 - K08.409) She says the denture fits poorly and she is going to see the dentist next week for an adjustment. 02/12/2024 Edentulous maxilla (ICD-10 - K08.409) She [...] Order Date PROFILE, FASTING (COMPREHENSIVE METABOLI C) 01/06/2023 PROFILE, FASTING (COMPREHENSIVE METABOLI C) 05/27/2022 PROFILE, FASTING (COMPREHENSIVE METABOLI C) 10/13/2023 PROFILE, FASTING (COMPREHENSIVE METABOLI C) 11/09/2021 PROFILE, FASTING (COMPREHENSIVE METABOLI C) 06/11/2023 PROFILE, FASTING (COMPREHENSIVE METABOLI C) 11/25/2022 PROFILE, FASTING (COMPREHENSIVE METABOLI C) 06/11/2024 PROFILE, FASTING (COMPREHENSIVE METABOLI C) 02/12/2024 PROFILE, FASTING (COMPREHENSIVE METABOLI C) 09/07/2018 PROFILE, RANDOM (COMPREHENSIVE METABOLIC ) 01/07/2018 LIPID PANEL 09/07/2018 LIPID PANEL 05/27/2022 LIPID PANEL 01/07/2018 LIPID PANEL 11/25/2022 CBC w DIFF 09/07/2018 CBC w DIFF 05/27/2022 CBC w DIFF 01/07/2018 CBC w DIFF 11/09/2021 CBC w DIFF 06/11/2024 VITAMIN D 25-OH TOTAL 01/07/2018 CBC WITH AUTO DIFF 02/12/2024 CBC WITH AUTO DIFF 01/06/2023 CBC WITH AUTO DIFF 10/13/2023 CBC WITH AUTO DIFF 06/11/2023 COLOGUARD 06/11/2023 Lipid Panel 06/11/2024 Lipid Panel 06/11/2023 Lipid Panel 02/12/2024 Lipid Panel 01/06/2023 Lipid Panel 10/13/2023 Lipid Panel 11/09/2021 Hemoglobin A1c 06/11/2024 Hemoglobin A1c 02/12/2024 Next Appt Details Provider Name:Jagdish Forde , 12/14/2024 11:00:00 AM, [address] [place] [address] [address], [place], [phone], Provider Name:Jagdish Forde , 06/13/2025 11:00:00 AM, [address] [place] [address] [address], [place], [phone], Insurance Providers Payer Name Payer Address Payer Phone Subscriber Number Group Number Insured Name Patient Relationship to Insured Coverage Start Date Coverage End Date [employer] [address] [address] [place] [address] [id number] Lore Parker Self - patient is the insured [place] [address] [place], [place] [id number] Lore Parker Self - patient is the insured Medical (General) History Medical History History ICD Code Psoriasis L40.9 inclusion cyst, left chin, excised 2011 complete extraction. Maxillary teeth 201 7 tobacco dependence hyperlipidemia postmenopausal Surgical History Surgery Date(Month/Year) declines colonoscopy resection inclusion cyst, left chin is a lump in upper teeth extraction 2016
--- OUTSIDE RECORDS SUMMARY | 2024-11-30 12:48 | XMS_ITS | Patient Health Record ---
Author Organization [facility] Address [address] [place] [address] Support Name Relationship Address Phone TESSY BHATIA Guarantor Unknown [phone] Reason For Referral No Information Problems Problem Type SNOMED Code ICD Code Onset Dates Problem Status W/U Status Risk Notes Problem Gynecological examination normal (907491292759431) Routine gynecological examination (V72.31) Active confirmed Diag Problem Counseling (967635928) Counseling NOS (V65.40) Active confirmed Diag Plan Of Treatment No Information Insurance Providers Payer Name Payer Address Payer Phone Subscriber Number Group Number Insured Name Patient Relationship to Insured Coverage Start Date Coverage End Date [employer] [place] [address] [place] [address] [id number] TESSY BHATIA Self - patient is the insured
[2024-11-30 13:36] LABS: MANUAL DIFF FLAG NO
[2024-11-30 13:41] LABS: Hematocrit 40.1 % (37.0-47.0); Hemoglobin 13.6 g/dl (12.0-16.0); Imm Gran Abs Auto 0.07 X10*3/uL (0.00-0.03); Imm Gran Pct Auto 0.6 % (0.0-0.4); Lymphocytes Absolute Auto 1.4 X10*3/uL (1.2-4.9); Mean Corpuscular HGB Conc 33.9 g/dl (31.0-35.0); Mean Corpuscular Hemoglobin 32.9 pg (27.0-33.0); Mean Corpuscular Volume 97.1 fL (80.0-98.0); NRBC Abs Auto 0.000 X10*3/uL (0.0-0.012); NRBC Pct Auto 0.0 /100WBC (0.0-0.2); Platelet Count 360 X10*3/uL (160-400); Red Blood Count 4.13 X10*6/uL (4.20-5.50); White Blood Count 11.8 X10*3/uL (4.8-10.8)
[2024-11-30 13:48] LABS: Total Hemoglobin (HGBA1C) 3525.4257 umol/L
[2024-11-30 15:11] LABS: Alanine Aminotransferase 25 U/L (0-31); Albumin Level 4.5 g/dL (3.5-5.0); Alkaline Phosphatase 69 U/L (39-117); Anion Gap 14 (12-20); Aspartate Amino Transferase 38 U/L (5-31); Blood Urea Nitrogen 10 mg/dL (9-16); Calcium 9.3 mg/dL (8.4-10.2); Carbon Dioxide 32 mmol/L (22-29); Chloride 100 mmol/L (96-108); Cholesterol 267 mg/dL (<200); Estimated Glomerular Filt Rate > 60; Potassium 3.8 mmol/L (3.3-5.1); Sodium 142 mmol/L (135-145); Total Protein 7.6 g/dL (6.5-8.0); Triglycerides 105 mg/dL (<150)
[2024-11-30 15:25] LABS: HDL Cholesterol 73 mg/dL (>40)
== END 2024-11-30 11:20 | disposition home or self-care (01) ==
LOC: HO.HMGCLDS 11:19
PROVIDERS: PCP Internal Medicine Medical Oncology; Visit Provider Internal Medicine Medical Oncology
DX: Z00.00 Encounter for general adult medical examination without abnormal findings (principal); E78.2 Mixed hyperlipidemia
CPT/HCPCS: 36415; 80053; 80061; 83036; 85025

== ENCOUNTER 2024-12-31 11:23 | Outpatient (REF) | payer OTHER, SELFPAY ==
--- OUTSIDE RECORDS SUMMARY | 2023-07-10 06:09 | XMS_ITS ---
Author Organization Jagdish Forde III, MD Address [address] [place] [address] [place] [address] Care Team Providers Care Network Security Officer Name Role Phone Dr. Jagdish Forde III Primary Care Provider [phone] REASON FOR VISIT cologuard positive results Social History Sex Assigned At : Social History Observation Description Sex Assigned At Female Encounters Encounter Location Date Provider Diagnosis Jagdish Forde III, MD [address] [place] [address] [place] [address] 07/10/2023 Jagdish Forde Plan Of Treatment Next Appt Details Provider Name:Jagdish Forde , 01/11/2025 11:15:00 AM, [address] [place] [address] [place], [address], Provider Name:Jagdish Forde , 06/13/2025 11:00:00 AM, [address] [place] [address] [place], [address], Progress Notes * Alton PARKER:1960 (62 yo F)Acc No.[id number]:07/10/2023 Patient: Lore Jauregui :1960 A ge:62 Y S ex:Female Address:[address] [place], [address] * true * Date: Generated for Everton rivas/Devorah/Chrissie on: 01:02 PM EDT
--- OUTSIDE RECORDS SUMMARY | 2023-10-13 07:00 | XMS_ITS ---
Author Organization Jagdish Forde III, MD Address [address] [place] [address] [place] [address] Care Team Providers Care Home School Teacher Name Role Phone Dr. Jagdish oFrde III Primary Care Provider [phone] Allergies Allergen (clinical drug ingredient) Drug/Non Drug [...] Problem Status W/U Status Risk Notes Problem 915295435 Positive colorectal cancer screening using Cologuard test [...] other explanation despite an extensive discussion. Problem 9750147 Noncompliance (Z91.199) Active confirmed She has declined [...] Date Provider Diagnosis Jagdish Forde III, MD [address] [place] [address] [facility] [address] 10/13/2023 Jagdish Forde Mixed hyperlipidemia E78.2 ; [...] Months, Reason: OV Provider Name:Jagdish Forde , 01/11/2025 11:15:00 AM, [address] [place] [address] [address], [place], [address], Provider Name:Jagdish Forde , 06/13/2025 11:00:00 AM, [address] [place] [address] [place], [address], Progress Notes * Alton PARKER:1960 (63 yo F)Acc No.[id number]:10/13/2023 Progress Notes Patient: Lore Jauregui Provider: Jenna Forde MD :1960 A ge:63 Y S ex:Female Date:10/13/2023 Address:[address] [place], [place] [id number] Subjective: * Chief Complaints: * P ositive [...] Family History: F ather: 62 yrs, CAD, [place], diabetes, diagnosed with CVD, DM. M other: [...] with one daughter. 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 She was born and [place], [place]. She declines to have a colonoscopy. [...] 74 (Ref Range: >40 mg/dL) * Lab:[facility] [place]. Pane l Fast * Order Date 09/29/2023 [...] hospital. I have referred her to smoke [place]. 4 . T hrombocytosis - D47.3, Her [...] MD Date: 0 10/13/2023 Generated for Everton rivas/Devorah/Chrissie on: 01:03 PM EDT History and Physical Notes * HPI (History of Present Illness) Category Sub-Category Detail Notes COVID-19 Screening Questions Have you had any new onset fever, chills, cough, congestion, sore throat, shortness of breath, muscle aches?: No Have you been exposed to the virus withi n the last 10 days?: No Have you travelled internationally in [facility] last 10 days?: No Have you been [...]
--- OUTSIDE RECORDS SUMMARY | 2024-02-12 07:00 | XMS_ITS ---
Author Organization Jagdish Forde III, MD Address [address] [place] [address] [place] [address] Care Team Providers Care Director [employer] Name Role Phone Dr. Jagdish Forde III Primary Care Provider Allergies Allergen (clinical drug ingredient) Drug/Non Drug Allergy documented on EMR Reaction Allergy Type Onset Date Status No Known Drug Allergy Unknown Drug Allergy Active REASON FOR VISIT Tobacco dependence, Hyperlipidemia, Psoriasis, Edentulous, Underweight, Thrombocytosis, Positive Cologard July 02, 2023 Social History Tobacco Use: Social History Observation [...] User Light cigarett e smoker ((1-9 cigs/day) Vital Signs Temperature 97.1 degrees Fahrenheit 02/12/20 24 Blood pressure systolic 138 mm Hg 02/12/20 24 Blood pressure diastolic 80 mm Hg 024 Heart Rate 84 /min 02/12/2024 Height 68 in 02/12/2024 Weight 133 lbs 02/12/2024 BMI 20.22 kg/m2 02/12/2024 Encounters Encounter Location Date Provider Diagnosis Jagdish Forde III, MD [address] [place] [address] DR [place], [place] [id number] 02/12/2024 Jagdish Forde Mixed hyperlipidemia E78.2 ; Hyperglycemia R73.9 ; Underweight R63.6 ; Tobacco dependence F17.200 ; Thrombocytosis D47.3 and 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 Her total cholesterol has declined from 281 to its current value of 249. I have offered to give her statin medication but she adamantly declines to take any medication at this time. We discussed the risks of an elevated cholesterol and her family history of cardiovascular disease today at length. 02/12/2024 Hyperglycemia (ICD-10 - R73.9) Her fasting glucose is 131. She continues in the prediabetic range. She declines to take any medication for her blood glucose levels. I have ordered a hemoglobin A1c to further characterize this. She will have a microalbumin.We have discussed at length the long-term consequences of untreated diabetes which include neuropathy renal failure or adenopathy immunosuppression weight loss etc. 02/12/2024 Underweight (ICD-10 - R63.6) Her body mass index has reached 20. She is no longer underweight. This value will be observed carefully. 02/12/2024 Tobacco dependence (ICD-10 - F17.200) She continues to smoke on a daily basis. I've discussed with her the health consequences of doing so. I have made her aware of the smoking cessation program to the community at the local hospital. I have referred her to smoke [place]. 02/12/2024 Thrombocytosis (ICD-10 - D47.3) Her platelet count is 381,000. This problem has resolved. 02/12/2024 Edentulous maxilla (ICD-10 - K08.409) She says the denture fits poorly and she is going to see the dentist next week for an adjustment. Plan Of Treatment Pending Test Test Name Order Date PROFILE, FASTING (COMPREHENSIVE METABOLI C) 02/12/2024 CBC WITH AUTO DIFF 02/12/2024 Lipid Panel 02/12/2024 Hemoglobin A1c 02/12/2024 Next Appt Details Follow Up: As Scheduled, Lenore son: OV Provider Name:Jagdish Forde , 01/11/2025 11:15:00 AM, [address] [place] [address] [address], [place], [address], Provider Name:Jagdish Forde , 06/13/2025 11:00:00 AM, [address] [facility] [place], [address], Progress Notes * Tapan PARKERAnabelaB:1960 (63 yo F)Acc No.[id number]:02/12/2024 Progress Notes Patient: Lore VALDEZ Provider: Jenna Forde MD :1960 A ge:63 Y S ex:Female Date:02/12/2024 Address:[address] [place], [place] [id number] Subjective: * Chief Complaints: * T obacco dependenceHyperlipidemiaPsoriasisEdentulousUnderweightThrombocytosisPositive Cologard July 02, 2023 * HPI: C OVID-19 Screening: She returns for a scheduled visit. Since her last visit in October of this year she has been well with no new complaints. She denies any abdominal pain constipation rectal bleeding ppelvic pain nauseaa vomiting diarrhea fevers or chills.She has gained some weight and her body mass indeex is now 20. She continues to decline to take any medication. She continues to smoke a package of cigarettes daily. She had a positive cologard test july.At that time she refused a colonoscopy. Since that time she has had no lower GI symptoms. I discussed at length with her the wisdom of having a colonoscopy. She discusses with me at length and decided ultimately that she would declined to have a colonoscopy. She understands the risks and benefits but she does not wish to undergo the preparation. Questions H ave you had any new onset fever, chills, cough, congestion, sore throat, shortness of breath, muscle aches? N o * ROS: G eneral/Constitutional: pain o nly normal aches and pains. C hills d enies.?Fatigue a dmits. F ever d enies. E NT: Decreased hearing d enies. R espiratory: Cough d enies. C ardiovascular: Chest pain with exertion d [...] Family History: F ather: 63 yrs, CAD, [place], diabetes, diagnosed with DM, CVD. M other: 73 yrs, hypertension, colon cancer, diagnosed with HTN, Cancer. 1 daughter(s) - healthy. . She has [...] with one daughter. 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 She was born and [place], [place]. She declines to have a colonoscopy. * Medications: N one * Allergies: N o Known Drug Allergyno[Allergies Verified] Objective: * Vitals: H t: 68, Wt: 133, BMI:20.22, BP: 138/80, HR: 84, Temp: 97.1, Wt-k.33. * P ast Orders: Lab:Comprehensive [place]. Matthe[facility] l Fast * Collection Date 02/02/2024 09/29/2023 05/28/2023 Collection Time 11:04 AM 12:05 PM 10:42 AM Order Date 02/02/2024 09/29/2023 05/28/2023 Sodium 140 (Ref Range: 135-145 mmol/L) 140 (Ref Range: 135-145 mmol/L) 139 (Ref Range: 135-145 mmol/L) Bilirubin Total 0.7 (Ref Range: 0.0-1.0 mg/dL) 0.6 (Ref Range: 0.0-1.0 mg/dL) 0.7 (Ref Range: 0.0-1.0 mg/dL) Aspartate Amino Transferase 47 H (Ref Range: 5-31 U/L) 31 (Ref Range: 5-31 U/L) 26 (Ref Range: 5-31 U/L) Alanine Aminotransferase 25 (Ref Range: 0-31 U/L) 21 (Ref Range: 0-31 U/L) 20 (Ref Range: 0-31 U/L) Total Protein 7.6 (Ref Range: 6.5-8.0 g/dL) 7.8 (Ref Range: 6.5-8.0 g/dL) 7.5 (Ref Range: 6.5-8.0 g/dL) Albumin Level 4.3 (Ref Range: 3.5-5.0 g/dL) 4.6 (Ref Range: 3.5-5.0 g/dL) 4.4 (Ref Range: 3.5-5.0 g/dL) Alkaline Phosphatase 81 (Ref Range: 39-117 U/L) 67 (Ref Range: 39-117 U/L) 60 (Ref Range: 39-117 U/L) Potassium 4.4 (Ref Range: 3.3-5.1 mmol/L) 4.2 (Ref Range: 3.3-5.1 mmol/L) 4.3 (Ref Range: 3.3-5.1 mmol/L) Chloride 99 (Ref Range: 96-108 mmol/L) 98 (Ref Range: 96-108 mmol/L) 98 (Ref Range: 96-108 mmol/L) Carbon Dioxide 29 (Ref Range: 22-29 mmol/L) 31 H (Ref Range: 22-29 mmol/L) 32 H (Ref Range: 22-29 mmol/L) Anion Gap 16 (Ref Range: 12-20) 15 (Ref Range: 12-20) 13 (Ref Range: 12-20) Blood Urea Nitrogen 11 (Ref Range: 9-16 mg/dL) 9 (Ref Range: 9-16 mg/dL) 10 (Ref Range: 9-16 mg/dL) Creatinine 0.68 (Ref Range: 0.5-1.4 mg/dL) 0.66 (Ref Range: 0.5-1.4 mg/dL) 0.63 (Ref Range: 0.5-1.4 mg/dL) Estimated Glomerular Filt Rate > 60 > 60 > 60 Glucose Fasting 131 H (Ref Range: 60-99 mg/dL) 132 H (Ref Range: 60-99 mg/dL) 132 H (Ref Range: 60-99 mg/dL) Calcium 9.8 (Ref Range: 8.4-10.2 mg/dL) 9.7 (Ref Range: 8.4-10.2 mg/dL) 9.5 (Ref Range: 8.4-10.2 mg/dL) * Lab:Lipid Panel * Collection Date 02/02/2024 09/29/2023 05/28/2023 Collection Time 11:04 AM 12:05 PM 10:42 AM Order Date 02/02/2024 09/29/2023 05/28/2023 Triglycerides 104 (Ref Range: <150 mg/dL) 104 (Ref Range: <150 mg/dL) 91 (Ref Range: <150 mg/dL) Cholesterol 249 H (Ref Range: <200 mg/dL) 281 H (Ref Range: <200 mg/dL) 272 H (Ref Range: <200 mg/dL) LDL Cholesterol Calculated 150 H (Ref Range: <100 mg/dL) 172 H (Ref Range: <100 mg/dL) 172 H (Ref Range: <100 mg/dL) HDL Cholesterol 79 (Ref Range: >40 mg/dL) 89 (Ref Range: >40 mg/dL) 82 (Ref Range: >40 mg/dL) * Lab:Complete Blood Count Aut o Diff * Collection Date 02/02/2024 09/29/2023 05/28/2023 Collection Time 11:04 AM 12:05 PM 10:42 AM Order Date 02/02/2024 09/29/2023 05/28/2023 White Blood Count 13.9 H (Ref Range: 4.8-10.8 X10*3/uL) 13.1 H (Ref Range: 4.8-10.8 X10*3/uL) 13.3 H (Ref Range: 4.8-10.8 X10*3/uL) Red Blood Count 4.17 L (Ref Range: 4.20-5.50 X10*6/uL) 4.29 (Ref Range: 4.20-5.50 X10*6/uL) 4.38 (Ref Range: 4.20-5.50 X10*6/uL) Hemoglobin 13.9 (Ref Range: 12.0-16.0 g/dl) 14.4 (Ref Range: 12.0-16.0 g/dl) 14.5 (Ref Range: 12.0-16.0 g/dl) Hematocrit 41.1 (Ref Range: 37.0-47.0 %) 42.4 (Ref Range: 37.0-47.0 %) 43.4 (Ref Range: 37.0-47.0 %) Mean Corpuscular Volume 98.6 H (Ref Range: 80.0-98.0 fL) 98.8 H (Ref Range: 80.0-98.0 fL) 99.1 H (Ref Range: 80.0-98.0 fL) Mean Corpuscular Hemoglobin 33.3 H (Ref Range: 27.0-33.0 pg) 33.6 H (Ref Range: 27.0-33.0 pg) 33.1 H (Ref Range: 27.0-33.0 pg) Mean Corpuscular HGB Conc 33.8 (Ref Range: 31.0-35.0 g/dl) 34.0 (Ref Range: 31.0-35.0 g/dl) 33.4 (Ref Range: 31.0-35.0 g/dl) Red Cell Distribution Width 11.9 (Ref Range: 11.0-16.0 %) 12.0 (Ref Range: 11.0-16.0 %) 11.9 (Ref Range: 11.0-16.0 %) Platelet Count 381 (Ref Range: 160-400 X10*3/uL) 364 (Ref Range: 160-400 X10*3/uL) 371 (Ref Range: 160-400 X10*3/uL) Mean Platelet Volume 10.3 (Ref Range: 9.4-12.3 fL) 10.6 (Ref Range: 9.4-12.3 fL) 10.3 (Ref Range: 9.4-12.3 fL) Neutrophils Percent Auto 81.0 H (Ref Range: 45-73 %) 81.5 H (Ref Range: 45-73 %) 79.0 H (Ref Range: 45-73 %) Imm Gran Pct Auto 0.4 (Ref Range: 0.0-0.4 %) 0.5 H (Ref Range: 0.0-0.4 %) 0.5 H (Ref Range: 0.0-0.4 %) Lymphocytes Percent Auto 9.9 L (Ref Range: 20-40 %) 10.0 L (Ref Range: 20-40 %) 11.9 L (Ref Range: 20-40 %) Monocytes Percent Auto 6.8 (Ref Range: 2-11 %) 6.1 (Ref Range: 2-11 %) 6.6 (Ref Range: 2-11 %) Eosinophils Percent Auto 0.9 (Ref Range: 0-4 %) 1.1 (Ref Range: 0-4 %) 1.4 (Ref Range: 0-4 %) Basophils Percent Auto 1.0 (Ref Range: 0-2 %) 0.8 (Ref Range: 0-2 %) 0.6 (Ref Range: 0-2 %) NRBC Pct Auto 0.0 (Ref Range: 0.0-0.2 /100WBC) 0.0 (Ref Range: 0.0-0.2 /100WBC) 0.0 (Ref Range: 0.0-0.2 /100WBC) Neutrophils Absolute Auto 11.3 H (Ref Range: 2.0-8.3 x10*3/uL) 10.7 H (Ref Range: 2.0-8.3 x10*3/uL) 10.5 H (Ref Range: 2.0-8.3 x10*3/uL) Imm Gran Abs Auto 0.05 H (Ref Range: 0.00-0.03 X10*3/uL) 0.07 H (Ref Range: 0.00-0.03 X10*3/uL) 0.06 H (Ref Range: 0.00-0.03 X10*3/uL) Lymphocytes Absolute Auto 1.4 (Ref Range: 1.2-4.9 X10*3/uL) 1.3 (Ref Range: 1.2-4.9 X10*3/uL) 1.6 (Ref Range: 1.2-4.9 X10*3/uL) Monocytes Absolute Auto 0.9 (Ref Range: 0.1-1.2 X10*3/uL) 0.8 (Ref Range: 0.1-1.2 X10*3/uL) 0.9 (Ref Range: 0.1-1.2 X10*3/uL) Eosinophils Absolute Auto 0.1 (Ref Range: 0.0-0.4 X10*3/uL) 0.1 (Ref Range: 0.0-0.4 X10*3/uL) 0.2 (Ref Range: 0.0-0.4 X10*3/uL) Basophils Absolute Auto 0.1 (Ref Range: 0.0-0.2 X10*3/uL) 0.1 (Ref Range: 0.0-0.2 X10*3/uL) 0.1 (Ref Range: 0.0-0.2 X10*3/uL) NRBC Abs Auto 0.000 (Ref Range: 0.0-0.012 X10*3/uL) 0.000 (Ref Range: 0.0-0.012 X10*3/uL) 0.000 (Ref Range: 0.0-0.012 X10*3/uL) * Examination: G eneral Examination: GENERAL APPEARANCE: p leasant, well nourished, well developed, in no acute distress, calm and relaxed, woman. HEAD: a traumatic, normocephalic. EYES: e [...] normal, no s3, or vascular bruits. LUNGS: , diminished breath sounds throughout, no wheezes, rales, rhonchi, good air movement. BREASTS: N ot examined. ABDOMEN: b owel sounds normal, no ascites, no organomegaly, no mass. RECTAL EXAM: n ot examined. MUSCULOSKELETAL: e xtremities unremarkable, no clubbing, cyanosis or edema. PERIPHERAL PULSES: n ormal. NEUROLOGIC: a lert and oriented, cranial nerves 2-12 grossly intact, deep tendon reflexes 2+ symmetrical, motor strength normal upper and lower extremities, sensory exam intact. PSYCH: a lert, oriented, cognitive function intact, cooperative with exam, good eye contact, speech clear, thought process logical, goal directed. ? Assessment: * Assessment: 1. M ixed hyperlipidemia - E78.2 (Primary) N otes :Her LDL is 50. Her total cholesterol has declined from 281 to its current value of 249. I have offered to give her statin medication but she adamantly declines to take any medication at this time. We discussed the risks of an elevated cholesterol and her family history of cardiovascular disease today at length. 2 . H yperglycemia - R73.9 N otes :Her fasting glucose is 131. She continues in the prediabetic range. She declines to take any medication for her blood glucose levels. I have ordered a hemoglobin A1c to further characterize this. She will have a microalbumin.We have discussed at length the long-term consequences of untreated diabetes which include neuropathy renal failure or adenopathy immunosuppression weight loss etc. 3 . U nderweight - R63.6 N otes :Her body mass index has reached 20. She is no longer underweight. This value will be observed carefully. 4 . T obacco dependence - F17.200 N otes :She continues to smoke on a daily basis. I've discussed with her the health consequences of doing so. I have made her aware of the smoking cessation program to the community at the local hospital. I have referred her to smoke [place]. 5 . T hrombocytosis - D47.3 N otes :Her platelet count is 381,000. This problem has resolved. 6 . E dentulous maxilla - K08.409 N otes :She says the denture fits poorly and she is going to see the dentist next week for an adjustment. Plan: * Treatment: 2. H yperglycemia L AB: PROFILE, FASTING (COMPREHENSIVE METABOLIC) L AB: CBC WITH AUTO DIFF L AB: Lipid Panel L AB: Hemoglobin A1c 3. U nderweight L AB: PROFILE, FASTING (COMPREHENSIVE METABOLIC) L AB: CBC WITH AUTO DIFF L AB: Lipid Panel L AB: Hemoglobin A1c * Procedure Codes: * Preventive Medicine: Counseling: S moking/Tobacco Use Patient counseled on the dangers of tobacco use and urged to quit. 1 04/14/2023 Patient Lifestyle Goals P atient wants to quit Treatment Goals C ut down by 1 cigarette a week, Set a quit date Barriers S tress Self-Management Plan M abby a plan to cut down number of cigarettes over time and set a date to work towards quitting DM Care Plan: P atient Lifestyle Goals P atient wants to be able to manage diabetes without too much effort. T reatment Goals H bA1C < 7.0, Blood Sugars less than < 115. B arriers n o barriers. S elf-Managment Goals I ncrease exercise to 3 times a week for 30 mins. * Follow Up: A s Scheduled (Reason: OV) * Images: * Sign off status: Completed true * Provider: Jenna Forde MD Date: 1 04/14/2023 Generated for Everton rivas/Devorah/Chrissie on: 01:02 PM EDT History and Physical Notes * HPI (History of Present Illness) Category Sub-Category Detail Notes COVID-19 Screening Questions Have you had any new onset fever, chills, cough, congestion, sore throat, shortness of breath, muscle aches?: No Examination Category Sub-Category Detail Notes General Examination GENERAL APPEARANCE: pleasant , well nourished, well developed, in no acute distress, calm and relaxed, woman HEAD: atraumatic, normocep halic EYES: eomi, perrla, anicte alisson, conjugate EARS: normal NOSE: septum intact NECK/THYROID: no jugular venous di stention, no carotid bruit, thyroid normal HEART: no clicks, gallops, murmurs, or rubs, regular rhythm, S1, S2 normal, no s3, or vascular bruits LUNGS: , diminished breath sounds throughout, no wheezes, rales, rhonchi, good air movement ABDOMEN: bowel sounds normal, no ascites, no organomegaly, no mass NEUROLOGIC: alert and oriented, cranial nerves 2-12 grossly intact, deep tendon reflexes 2+ symmetrical, motor strength normal upper and lower extremities, sensory exam intact SKIN: no suspicious lesion s, anicteric PERIPHERAL PULSES: normal BREASTS: Not examined MUSCULOSKELETAL: extremities unremark able, no clubbing, cyanosis or edema LYMPH NODES: no enlarged lymph no gabrielle,spleen normal RECTAL EXAM: not examined PSYCH: alert, oriented, cog nitive function intact, cooperative with exam, good eye contact, speech clear, thought process logical, goal directed ORAL CAVITY: normal, unremarkable
--- OUTSIDE RECORDS SUMMARY | 2024-06-11 07:00 | XMS_ITS ---
Author Organization Jagdish Forde III, MD Address [address] [place] [address] Care Team Providers Care Plumbing Instructor Name Role Phone Dr. Jagdish Forde III [...] Date Provider Diagnosis Jagdish Forde III, MD [address] [place] [address] [place] [address] 06/11/2024 Jagdish Forde Mixed hyperlipidemia E78.2 ; [...] Provider Name:Jagdish Forde , 01/11/2025 11:15:00 AM, [address] [place] [address] [address], [place], [phone], Provider Name:Jagdish Forde , 06/13/2025 11:00:00 AM, [address] [place] [address] [address], [place], [phone], Progress Notes * GRACEMIKE TapanaDOB:1960 (63 yo F)Acc No.[id number]:06/11/2024 Progress Notes Patient: Lore VALDEZ Provider: Jenna Forde MD :1960 A ge:63 Y S ex:Female Date:06/11/2024 Address:[address] [place] [address] [place], [id number] Subjective: * Chief Complaints: * A nnual [...] Family History: F ather: 62 yrs, CAD, [place], diabetes, diagnosed with CVD, DM. 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 She was born and [place], [place]. She declines to have a colonoscopy. [...] 89 (Ref Range: >40 mg/dL) * Lab:Comprehensive [place]. Pane l Fast * Collection Date 05/27/2024 [...] ot examined, Patient declined breast exam, prefers [facility]. ABDOMEN: b owel sounds normal, no ascites, [...] hospital. I have referred her to smoke [place]. 3 . P ostmenopausal - Z78.0 N [...] MD Date: 0 06/11/2024 Generated for Shelleyi ng/Fajosephg/eTransmitting on: 1 01:03 PM EDT History and Physical Notes [...] examined, Patien t declined breast exam, prefers [facility] MUSCULOSKELETAL: extremities unremark able, no clubbing, cyanosis or edema LYMPH NODES: no enlarged lymph no gabrielle,spleen normal RECTAL EXAM: not examined PSYCH: alert, oriented ORAL CAVITY: normal, unremarkable , Edentulous
--- OUTSIDE RECORDS SUMMARY | 2024-12-14 07:00 | XMS_ITS ---
Author Organization Jagdish Forde III, MD Address [address] [place] [address] [place] [address] Care Team Providers Care Systems Requirements Planner Name Role Phone Dr. Jagdish Forde III Primary Care Provider Allergies Allergen (clinical drug ingredient) Drug/Non Drug Allergy documented on EMR Reaction Allergy Type Onset Date Status No Known Drug Allergy Unknown Drug Allergy Active REASON FOR VISIT Hyperlipidemia, Tobacco dependence, Rises, Thrombocytosis toes, Underway Medications Medication SIG (Take, Route, Frequency, Duration) Notes Start Date End Date Status Atorvastatin Calcium 10 MG 1 tablet Oral ly Once a day for 30 days 12/14/2024 Active Social History Tobacco Use: Social History Observation [...] user Light cigarett e smoker (1-9 cigs/day) Vital Signs Temperature 97.9 degrees Fahrenheit 12/15/19 25 Blood pressure systolic 130 mm Hg 12/15/19 25 Blood pressure diastolic 80 mm Hg 025 Heart Rate 98 /min 12/14/2024 Height 68 in 12/14/2024 Weight 143 lbs 12/14/2024 BMI 21.74 kg/m2 12/14/2024 Encounters Encounter Location Date Provider Diagnosis Jagdish Forde III, MD [address] [place] [address] [place] [address] 12/14/2024 Jagdish Forde Mixed hyperlipidemia E78.2 ; Tobacco dependence F17.200 ; Thrombocytosis D47.3 ; History of psoriasis Z87.2 and 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 It is now 267. She did agree to a trial of atorvastatin 10 mg which I have prescribed. Side effects and risks and benefits were carefully explained to her and she gave informed consent. 12/14/2024 Tobacco dependence (ICD-10 - F17.200) She continues to smoke on a daily basis. I've discussed with her the health consequences of doing so. I have made her aware of the smoking cessation program to the community at the local hospital. I have referred her to [facility]. 12/14/2024 Thrombocytosis (ICD-10 - D47.3) Her platelet count is 360,000. This problem has resolved. 12/14/2024 History of psoriasis (ICD-10 - Z87.2) Psoriasis was minimal today in no change in therapy was necessary. 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 Plan Of Treatment Medication Medication Name Sig Start Date Stop Date Notes Atorvastatin Calcium 10 MG 1 tablet Oral ly Once a day for 30 days 12/14/2024 Pending Test Test Name Order Date Lipid Panel 12/14/2024 Next Appt Details Follow Up: 4 Weeks, Reason: OV Provider Name:Jagdish Forde , 01/11/2025 11:15:00 AM, [address] [place] [address] [place], [address], Provider Name:Jagdish Forde , 06/13/2025 11:00:00 AM, [address] [place] [address] [place], [address], Progress Notes * Tapan PARKERaDOB:1960 (64 yo F)Acc No.[id number]:12/14/2024 Progress Notes Patient: Lore VALDEZ Provider: Jenna Forde MD :1960 A ge:64 Y S ex:Female Date:12/14/2024 Address:[address] [place] [address], [place] [id number] Subjective: * Chief Complaints: * H yperlipidemiaTobacco dependenceRisesThrombocytosis toesUnderway * HPI: C OVID-19 Screening: S he returns to the office 6 months after her annual visit for medical management. She has reduced her cigarette consumption to 7 cigarettes daily. She had a mammogram recently and received a letter saying it was normal. She reports no new problems. She has had no chest pain or bleeding nausea vomiting or diarrhea. Her appetite is fair.Her blood pressure is stable. She has gained 10 pounds in her body mass index is now 21. No new findings were present on her examination. Questions H ave you had any new [...] Muscle aches d enies. P ainful joints F ingers.?Sciatica d enies. W eakness d enies. S [...] Family History: F ather: 62 yrs, CAD, AR, diabetes, diagnosed with CVD, DM. M other: [...] user L ight cigarette smoker (1-9 cigs/day) S he is single with one daughter. 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 She was born and [place], [place]. She declines to have a colonoscopy. * Medications: N one * Allergies: N o Known Drug Allergyno[Allergies Verified] Objective: * Vitals: H t: 68, Wt: 143, BMI:21.74, BP: 130/80, HR: 98, Temp: 97.9, Wt-k.86. * P ast Orders: Lab:Complete Blood Count Aut o Diff * Collection Date 11/30/2024 05/27/2024 02/02/2024 Collection Time 11:25 AM 11:17 AM 11:04 AM Order Date 11/30/2024 05/27/2024 02/02/2024 White Blood Count 11.8 H (Ref Range: 4.8-10.8 X10*3/uL) 11.7 H (Ref Range: 4.8-10.8 X10*3/uL) 13.9 H (Ref Range: 4.8-10.8 X10*3/uL) Red Blood Count 4.13 L (Ref Range: 4.20-5.50 X10*6/uL) 4.37 (Ref Range: 4.20-5.50 X10*6/uL) 4.17 L (Ref Range: 4.20-5.50 X10*6/uL) Hemoglobin 13.6 (Ref Range: 12.0-16.0 g/dl) 14.4 (Ref Range: 12.0-16.0 g/dl) 13.9 (Ref Range: 12.0-16.0 g/dl) Hematocrit 40.1 (Ref Range: 37.0-47.0 %) 42.8 (Ref Range: 37.0-47.0 %) 41.1 (Ref Range: 37.0-47.0 %) Mean Corpuscular Volume 97.1 (Ref Range: 80.0-98.0 fL) 97.9 (Ref Range: 80.0-98.0 fL) 98.6 H (Ref Range: 80.0-98.0 fL) Mean Corpuscular Hemoglobin 32.9 (Ref Range: 27.0-33.0 pg) 33.0 (Ref Range: 27.0-33.0 pg) 33.3 H (Ref Range: 27.0-33.0 pg) Mean Corpuscular HGB Conc 33.9 (Ref Range: 31.0-35.0 g/dl) 33.6 (Ref Range: 31.0-35.0 g/dl) 33.8 (Ref Range: 31.0-35.0 g/dl) Red Cell Distribution Width 11.9 (Ref Range: 11.0-16.0 %) 12.5 (Ref Range: 11.0-16.0 %) 11.9 (Ref Range: 11.0-16.0 %) Platelet Count 360 (Ref Range: 160-400 X10*3/uL) 352 (Ref Range: 160-400 X10*3/uL) 381 (Ref Range: 160-400 X10*3/uL) Mean Platelet Volume 10.7 (Ref Range: 9.4-12.3 fL) 10.5 (Ref Range: 9.4-12.3 fL) 10.3 (Ref Range: 9.4-12.3 fL) Neutrophils Percent Auto 78.2 H (Ref Range: 45-73 %) 74.5 H (Ref Range: 45-73 %) 81.0 H (Ref Range: 45-73 %) Imm Gran Pct Auto 0.6 H (Ref Range: 0.0-0.4 %) 0.5 H (Ref Range: 0.0-0.4 %) 0.4 (Ref Range: 0.0-0.4 %) Lymphocytes Percent Auto 12.2 L (Ref Range: 20-40 %) 14.0 L (Ref Range: 20-40 %) 9.9 L (Ref Range: 20-40 %) Monocytes Percent Auto 7.0 (Ref Range: 2-11 %) 8.0 (Ref Range: 2-11 %) 6.8 (Ref Range: 2-11 %) Eosinophils Percent Auto 1.1 (Ref Range: 0-4 %) 2.1 (Ref Range: 0-4 %) 0.9 (Ref Range: 0-4 %) Basophils Percent Auto 0.9 (Ref Range: 0-2 %) 0.9 (Ref Range: 0-2 %) 1.0 (Ref Range: 0-2 %) NRBC Pct Auto 0.0 (Ref Range: 0.0-0.2 /100WBC) 0.0 (Ref Range: 0.0-0.2 /100WBC) 0.0 (Ref Range: 0.0-0.2 /100WBC) Neutrophils Absolute Auto 9.2 H (Ref Range: 2.0-8.3 x10*3/uL) 8.7 H (Ref Range: 2.0-8.3 x10*3/uL) 11.3 H (Ref Range: 2.0-8.3 x10*3/uL) Imm Gran Abs Auto 0.07 H (Ref Range: 0.00-0.03 X10*3/uL) 0.06 H (Ref Range: 0.00-0.03 X10*3/uL) 0.05 H (Ref Range: 0.00-0.03 X10*3/uL) Lymphocytes Absolute Auto 1.4 (Ref Range: 1.2-4.9 X10*3/uL) 1.6 (Ref Range: 1.2-4.9 X10*3/uL) 1.4 (Ref Range: 1.2-4.9 X10*3/uL) Monocytes Absolute Auto 0.8 (Ref Range: 0.1-1.2 X10*3/uL) 0.9 (Ref Range: 0.1-1.2 X10*3/uL) 0.9 (Ref Range: 0.1-1.2 X10*3/uL) Eosinophils Absolute Auto 0.1 (Ref Range: 0.0-0.4 X10*3/uL) 0.3 (Ref Range: 0.0-0.4 X10*3/uL) 0.1 (Ref Range: 0.0-0.4 X10*3/uL) Basophils Absolute Auto 0.1 (Ref Range: 0.0-0.2 X10*3/uL) 0.1 (Ref Range: 0.0-0.2 X10*3/uL) 0.1 (Ref Range: 0.0-0.2 X10*3/uL) NRBC Abs Auto 0.000 (Ref Range: 0.0-0.012 X10*3/uL) 0.000 (Ref Range: 0.0-0.012 X10*3/uL) 0.000 (Ref Range: 0.0-0.012 X10*3/uL) * Lab:[facility] * Collection Date 11/30/2024 05/27/2024 02/02/2024 Collection Time 11:25 AM 11:17 AM 11:04 AM Order Date 11/30/2024 05/27/2024 02/02/2024 Sodium 142 (Ref Range: 135-145 mmol/L) 141 (Ref Range: 135-145 mmol/L) 140 (Ref Range: 135-145 mmol/L) Bilirubin Total 0.6 (Ref Range: 0.0-1.0 mg/dL) 0.7 (Ref Range: 0.0-1.0 mg/dL) 0.7 (Ref Range: 0.0-1.0 mg/dL) Aspartate Amino Transferase 38 H (Ref Range: 5-31 U/L) 63 H (Ref Range: 5-31 U/L) 47 H (Ref Range: 5-31 U/L) Alanine Aminotransferase 25 (Ref Range: 0-31 U/L) 54 H (Ref Range: 0-31 U/L) 25 (Ref Range: 0-31 U/L) Total Protein 7.6 (Ref Range: 6.5-8.0 g/dL) 8.0 (Ref Range: 6.5-8.0 g/dL) 7.6 (Ref Range: 6.5-8.0 g/dL) Albumin Level 4.5 (Ref Range: 3.5-5.0 g/dL) 4.4 (Ref Range: 3.5-5.0 g/dL) 4.3 (Ref Range: 3.5-5.0 g/dL) Alkaline Phosphatase 69 (Ref Range: 39-117 U/L) 93 (Ref Range: 39-117 U/L) 81 (Ref Range: 39-117 U/L) Potassium 3.8 (Ref Range: 3.3-5.1 mmol/L) 4.5 (Ref Range: 3.3-5.1 mmol/L) 4.4 (Ref Range: 3.3-5.1 mmol/L) Chloride 100 (Ref Range: 96-108 mmol/L) 100 (Ref Range: 96-108 mmol/L) 99 (Ref Range: 96-108 mmol/L) Carbon Dioxide 32 H (Ref Range: 22-29 mmol/L) 29 (Ref Range: 22-29 mmol/L) 29 (Ref Range: 22-29 mmol/L) Anion Gap 14 (Ref Range: 12-20) 17 (Ref Range: 12-20) 16 (Ref Range: 12-20) Blood Urea Nitrogen 10 (Ref Range: 9-16 mg/dL) 10 (Ref Range: 9-16 mg/dL) 11 (Ref Range: 9-16 mg/dL) Creatinine 0.57 (Ref Range: 0.5-1.4 mg/dL) 0.62 (Ref Range: 0.5-1.4 mg/dL) 0.68 (Ref Range: 0.5-1.4 mg/dL) Estimated Glomerular Filt Rate > 60 > 60 > 60 Glucose Fasting 128 H (Ref Range: 60-99 mg/dL) 136 H (Ref Range: 60-99 mg/dL) 131 H (Ref Range: 60-99 mg/dL) Calcium 9.3 (Ref Range: 8.4-10.2 mg/dL) 9.5 (Ref Range: 8.4-10.2 mg/dL) 9.8 (Ref Range: 8.4-10.2 mg/dL) * Lab:Lipid Panel * Collection Date 11/30/2024 05/27/2024 02/02/2024 Collection Time 11:25 AM 11:17 AM 11:04 AM Order Date 11/30/2024 05/27/2024 02/02/2024 Triglycerides 105 (Ref Range: <150 mg/dL) 98 (Ref Range: <150 mg/dL) 104 (Ref Range: <150 mg/dL) Cholesterol 267 H (Ref Range: <200 mg/dL) 279 H (Ref Range: <200 mg/dL) 249 H (Ref Range: <200 mg/dL) LDL Cholesterol Calculated 173 H (Ref Range: <100 mg/dL) 175 H (Ref Range: <100 mg/dL) 150 H (Ref Range: <100 mg/dL) HDL Cholesterol 73 (Ref Range: >40 mg/dL) 85 (Ref Range: >40 mg/dL) 79 (Ref Range: >40 mg/dL) * Lab:Hemoglobin A1c * Collection Date 11/30/2024 05/27/2024 Collection Time 11:25 AM 11:17 AM Order Date 11/30/2024 05/27/2024 Hemoglobin A1c % 5.2 (Ref Range: <6.0 %) 5.1 (Ref Range: <6.0 %) Estimated Average Glucose 103 (Ref Range: mg/dL) 100 (Ref Range: mg/dL) * Examination: G eneral Examination: GENERAL APPEARANCE: p leasant, well nourished, well developed, in no acute distress, calm and relaxed: woman. HEAD: a traumatic, normocephalic. EYES: e emily, perrla, anicteric, conjugate. EARS: n ormal. NOSE: s eptum intact. ORAL CAVITY: M axillae edentulous. NECK/THYROID: n o jugular venous distention, no carotid bruit, thyroid normal. LYMPH NODES: n o enlarged lymph nodes,spleen normal. SKIN: n o suspicious lesions, anicteric. HEART: n o clicks, gallops, murmurs, or rubs, regular rhythm, S1, S2 normal, no s3, or vascular bruits. LUNGS: : diminished breath sounds throughout: no wheezes, rales, rhonchi. BREASTS: N ot examined. ABDOMEN: b owel [...] a lert, oriented. Assessment: * Assessment: 1. T obacco dependence - F17.200 (Primary) N otes :She continues to smoke on a daily basis. I've discussed with her the health consequences of doing so. I have made her aware of the smoking cessation program to the community at the local hospital. I have referred her to [facility]. 2 . M ixed hyperlipidemia - E78.2 N otes :Her total cholesterol has been significantly elevated above her target. It is now 267. She did agree to a trial of atorvastatin 10 mg which I have prescribed. Side effects and risks and benefits were carefully explained to her and she gave informed consent. 3 . T hrombocytosis - D47.3 N otes :Her platelet count is 360,000. This problem has resolved. 4 . H istory of psoriasis - Z87.2 N otes :Psoriasis was minimal today in no change in therapy was necessary. 5 . E dentulous maxilla - K08.409 N otes :She says the denture fits poorly and she is going to see the dentist next week for an adjustment. Plan: * Treatment: 2. O thers Start Atorvastatin Calcium Tablet, 10 MG, 1 tablet, Orally, Once a day, 30 days, 30, Refills 5.? * Procedure Codes: * Preventive Medicine: Counseling: S moking/Tobacco Use Patient counseled on the dangers of tobacco use and urged to quit. 1 Patient Lifestyle Goals P atient wants to quit Treatment Goals C ut down by 1 cigarette a week, Set a quit date Barriers S ocial smoker, Stress Self-Management Plan M abby a plan to cut down number of cigarettes over time and set a date to work towards quitting * Follow Up: 4 Weeks (Reason: OV) * Images: * Sign off status: Completed true * Provider: Jenna Forde MD Date: Generated for Shelleyi evelyn/Devorah/eTransmitting on: 01:03 PM EDT History and Physical Notes * HPI (History of Present Illness) Category Sub-Category Detail Notes COVID-19 Screening Questions Have you had any new onset fever, chills, cough, congestion, sore throat, shortness of breath, muscle aches?: No Examination Category Sub-Category Detail Notes General Examination GENERAL APPEARANCE: pleasant , well nourished, well developed, in no acute distress, calm and relaxed: woman HEAD: atraumatic, normocep halic EYES: eomi, perrla, anicte alisson, conjugate EARS: normal NOSE: septum intact NECK/THYROID: no jugular venous di stention, no carotid bruit, thyroid normal HEART: no clicks, gallops, murmurs, or rubs, regular rhythm, S1, S2 normal, no s3, or vascular bruits LUNGS: : diminished breath sounds throughout: no wheezes, rales, rhonchi ABDOMEN: bowel sounds normal, no ascites, no [...] not examined PSYCH: alert, oriented ORAL CAVITY: Maxillae edentulous
--- OUTSIDE RECORDS SUMMARY | 2024-12-31 13:03 | XMS_ITS | Patient Health Record ---
Author Organization [facility] Address [address] [place] [address] Support Name Relationship Address Phone TESSY BHATIA Guarantor Unknown [phone] Reason For Referral No Information Problems Problem Type SNOMED Code ICD Code Onset Dates Problem Status W/U Status Risk Notes Problem Gynecological examination normal (822310355300420) Routine gynecological examination (V72.31) Active confirmed Diag Problem Counseling (314822407) Counseling NOS (V65.40) Active confirmed Diag Plan Of Treatment No Information Insurance Providers Payer Name Payer Address Payer Phone Subscriber Number Group Number Insured Name Patient Relationship to Insured Coverage Start Date Coverage End Date [employer] [place] [address] [place] [address] [id number] TESSY BHATIA Self - patient is the insured
--- OUTSIDE RECORDS SUMMARY | 2024-12-31 13:03 | XMS_ITS | Patient Health Record ---
Author Organization Jagdish Forde III, MD Address [address] [place] [address] [place] [address] Care Team Providers Care Tie Inspector Name Role Phone Dr. Jagdish Forde III Primary Care Provider [phone] Allergies Allergen (clinical drug ingredient) Drug/Non Drug Allergy documented on EMR Reaction Allergy Type Onset Date Status No Known Drug Allergy Unknown Drug Allergy Active Results Component Value Reference Range Notes Complete Blood Count Auto Di ff Reviewed date:02/09/2024 05:33:01 AM Interpretation: Performing Lab:[facility], [address] [place] [phone] Notes/Report: White Blood Count 13.9 4.8-10.8 X10*3/uL [...] NRBC Abs Auto 0.000 0.0-0.012 X10*3/uL Comprehensive [place]. Panel Fa st Reviewed date:02/09/2024 05:33:01 AM Interpretation: Performing Lab:[facility], [address] [place] [phone] Notes/Report: Sodium 140 135-145 mmol/L Potassium 4.4 [...] Panel Reviewed date:02/09/2024 05:33:01 AM Interpretation: Performing Lab:[facility], [address] [place] [phone] Notes/Report: Triglycerides 104 <150 mg/dL Desirable Triglyceride: [...] ff Reviewed date:05/29/2024 07:58:28 AM Interpretation: Performing Lab:[facility], [address] [place] [phone] Notes/Report: White Blood Count 11.7 4.8-10.8 X10*3/uL [...] NRBC Abs Auto 0.000 0.0-0.012 X10*3/uL Comprehensive [place]. Panel Fa st Reviewed date:05/29/2024 07:58:28 AM Interpretation: Performing Lab:[address] [phone] Notes/Report: Sodium 141 135-145 mmol/L Potassium 4.5 [...] Panel Reviewed date:05/29/2024 07:58:28 AM Interpretation: Performing Lab:[facility], [address] [place] [phone] Notes/Report: Triglycerides 98 <150 mg/dL Desirable Triglyceride: [...] A1c Reviewed date:05/29/2024 07:58:28 AM Interpretation: Performing Lab:[address] [phone] Notes/Report: Hemoglobin A1c % 5.1 <6.0 % [...] average glucose, using the formula of the [id number] Average Glucose study (ADAG), Diabetes Care, Vol.31,#8, [...] 0.2 - 1.3 BLD 5-10 Negative - Complete Blood Count Auto Di ff Reviewed date:12/13/2024 09:28:05 AM Interpretation: Performing Lab:[facility], [address] [place] [phone] Notes/Report: White Blood Count 11.8 4.8-10.8 X10*3/uL Red Blood Count 4.13 4.20-5.50 X10*6/uL Hemoglobin 13.6 12.0-16.0 g/dl Hematocrit 40.1 37.0-47.0 % Mean Corpuscular Volume 97.1 80.0-98.0 fL Mean Corpuscular Hemoglobin 32.9 27.0-33.0 pg Mean Corpuscular HGB Conc 33.9 31.0-35.0 g/dl Red Cell Distribution Width 11.9 11.0-16.0 % Platelet Count 360 160-400 X10*3/uL Mean Platelet Volume 10.7 9.4-12.3 fL Neutrophils Percent Auto 78.2 45-73 % Imm Gran Pct Auto 0.6 0.0-0.4 % Lymphocytes Percent Auto 12.2 20-40 % Monocytes Percent Auto 7.0 2-11 % Eosinophils Percent Auto 1.1 0-4 % Basophils Percent Auto 0.9 0-2 % NRBC Pct Auto 0.0 0.0-0.2 /100WBC Neutrophils Absolute Auto 9.2 2.0-8.3 x10*3/u L Imm Gran Abs Auto 0.07 0.00-0.03 X10*3/uL Lymphocytes Absolute Auto 1.4 1.2-4.9 X10*3/u L Monocytes Absolute Auto 0.8 0.1-1.2 X10*3/uL Eosinophils Absolute Auto 0.1 0.0-0.4 X10*3/u L Basophils Absolute Auto 0.1 0.0-0.2 X10*3/uL NRBC Abs Auto 0.000 0.0-0.012 X10*3/uL Comprehensive [place]. Panel Fa st Reviewed date:12/13/2024 09:28:06 AM Interpretation: Performing Lab:[facility], [address] [place] [phone] Notes/Report: Sodium 142 135-145 mmol/L Potassium 3.8 3.3-5.1 mmol/L Chloride 100 96-108 mmol/L Carbon Dioxide 32 22-29 mmol/L Anion Gap 14 12-20 Blood Urea Nitrogen 10 9-16 mg/dL Creatinine 0.57 0.5-1.4 mg/dL Estimated Glomerular Filt Rate > 60 Chronic Kidney Disease: Estimated GFR < 60 mL/min/1.73m2 Severe Kidney Disease: Estimated GFR < 15 mL/min/1.73m2 Glucose Fasting 128 60-99 mg/dL A fasting glucose of 126 mg/dl or greater on more than one occasion is considered diagnostic of diabetes. Calcium 9.3 8.4-10.2 mg/dL Bilirubin Total 0.6 0.0-1.0 mg/dL Aspartate Amino Transferase 38 5-31 U/L Alanine Aminotransferase 25 0-31 U/L Total Protein 7.6 6.5-8.0 g/dL Albumin Level 4.5 3.5-5.0 g/dL Alkaline Phosphatase 69 39-117 U/L Lipid Panel Reviewed date:12/13/2024 09:28:06 AM Interpretation: Performing Lab:[facility], [address] [place] [phone] Notes/Report: Triglycerides 105 <150 mg/dL Desirable Triglyceride: less than 150 mg/dL Borderline High Triglyceride 150-199 mg/dL High Triglyceride: 200-499 mg/dL Very High Triglyceride: greater than or equal to 5OO mg/dL Cholesterol 267 <200 mg/dL Desirable Cholesterol: less than 200 mg/dL Borderline High Cholesterol: 200-239 mg/dL High Cholesterol: greater than 239 mg/dL LDL Cholesterol Calculated 173 <100 mg/dL Desirable LDL: less than 100 mg/dL Near Optimal/Above Optimal LDL: 110-129 mg/dL Borderline High LDL: 130-159 mg/dL High LDL: 160-189 mg/dL Very High LDL: greater than or equal to 190 mg/dL HDL Cholesterol 73 >40 mg/dL Desirable HDL: greater than 40 mg/dL Note: This HDL assay may give artificially low results in patients with liver disease. Hemoglobin A1c Reviewed date:12/13/2024 09:28:06 AM Interpretation: Performing Lab:[facility], [address] [place] [phone] Notes/Report: Hemoglobin A1c % 5.2 <6.0 % Hemoglobin A1C Reference Range Adults: 4.8 - 6.0 % Non diabetic: < 6.0 % Goal: < 7.0 % Additional Action Suggested: > 8.0 % Note: Hemoglobin A1c results are invalid for patients with abnormal amounts of HbF. Blood transfusions may impact the HbA1c concentration in the patient sample. Estimated Average Glucose 103 eAG = Estimated average glucose which is %A1C expressed as average glucose, using the formula of the J1X-Fhhbcni Average Glucose study (ADAG), Diabetes Care, Vol.31,#8, 2007 Reason For Referral No Information Medications Medication SIG (Take, Route, Frequency, Duration) [...] Problem Status W/U Status Risk Notes Problem 65425922 Postmenopausal (Z78.0) Active confirmed She has agreed to have a bone density test every 2 years. She has not had any periods since her last visit. Problem 59867040 Hyperglycemia (R73.9) Active confirmed Her fasting glucose is 131. She continues in the prediabetic range. She declines to take any medication for her blood glucose levels. I have ordered a hemoglobin A1c to further characterize this. She will have a microalbumin.We have discussed at length the long-term consequences of untreated diabetes which include neuropathy renal failure or adenopathy immunosuppression weight loss etc. Problem 273094527 Underweight (R63.6) Active confirmed Her body mass index has reached 20. She is no longer underweight. This value will be observed carefully. Problem Cough (58967294) Cough (R05) Active confirmed She continues to have mild nonproductive cough, which is likeely due to smoking some tobaccco. Problem 6670084 Thrombocytosis (D47.3) Active confirmed Her platelet co unt is 360,000. This problem has resolved. Problem 1604411 Arthritis (M19.90) Active confirmed The inflammatio n in the right hand is improving. Range of motion is preserved. The cause of this is unclear, but not infectious. She will continue with conservative therapy of heat and ibuprofen. I have offered to refer her to rheumatology for evaluation for gout and other etiologies But she declined that today. Problem 518168421 Mixed hyperlipidemia (E78.2) Active confirmed Her total cholesterol has been significantly elevated above her target. It is now 267. She did agree to a trial of atorvastatin 10 mg which I have prescribed. Side effects and risks and benefits were carefully explained to her and she gave informed consent. Problem 99247380 Tobacco dependence (F17.200) Active confirmed She continues t o smoke on a daily basis. I've discussed with her the health consequences of doing so. I have made her aware of the smoking cessation program to the community at the local hospital. I have referred her to [facility]. 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 Problem 502601029 History of psoriasis (Z87.2) Active confirmed Psoriasis was minimal today in no change in therapy was necessary. Problem 854222124 Positive colorectal cancer screening using Cologuard test [...] other explanation despite an extensive discussion. Problem 5722749 Noncompliance (Z91.199) Active confirmed She has decline [...] still be available. Vital Signs Heart Rate 98 /min 12/14/2024 Temperature 97.9 degrees Fahrenheit 12/14/2024 Blood pressure diastolic 80 mm Hg 12/14/2024 Height 68 in 12/14/2024 Blood pressure systolic 130 mm Hg 12/14/2024 Weight 143 lbs 12/14/2024 BMI 21.74 kg/m2 12/14/2024 Encounters Encounter Location Date Provider Diagnosis Jagdish Forde III, MD [address] [place] [address] [place] [address] 02/12/2024 Jagdish Forde Mixed hyperlipidemia E78.2 ; Hyperglycemia R73.9 ; Underweight R63.6 ; Tobacco dependence F17.200 ; Thrombocytosis D47.3 and Edentulous maxilla K08.409 Jagdish Forde III, MD [address] [place] [address] [place] [address] 06/11/2024 Jagdish Forde Mixed hyperlipidemia E78.2 ; Tobacco dependence F17.200 ; Postmenopausal Z78.0 ; History of psoriasis Z87.2 ; Edentulous maxilla K08.409 ; Hyperglycemia R73.9 ; Cough R05 and Thrombocytosis D47.3 Jagdish Forde III, MD [address] [place] [address] [place] [phone] 12/14/2024 Jagdish Forde Mixed hyperlipidemia E78.2 ; [...] hospital. I have referred her to [facility]. 12/14/2024 Mixed hyperlipidemia (ICD-10 - E78.2) Her [...] hospital. I have referred her to [facility]. 02/12/2024 Underweight (ICD-10 - R63.6) Her body mass index has reached 20. She is no longer underweight. This value will be observed carefully. 06/11/2024 Postmenopausal (ICD-10 - Z78.0) She has agreed to have a bone density test every 2 years. She has not had any periods since her last visit. 12/14/2024 Thrombocytosis (ICD-10 - D47.3) Her platelet count is 360,000. This problem has resolved. 02/12/2024 Tobacco dependence (ICD-10 - F17.200) She [...] no change in therapy was necessary. 12/14/2024 History of psoriasis (ICD-10 - Z87.2) Psoriasis was minimal today in no change in therapy was necessary. 02/12/2024 Thrombocytosis (ICD-10 - D47.3) Her platelet count is 381,000. This problem has resolved. 06/11/2024 Edentulous maxilla (ICD-10 - K08.409) She says the denture fits poorly and she is going to see the dentist next week for an adjustment. 12/14/2024 Edentulous maxilla (ICD-10 - K08.409) She [...] Panel 06/11/2023 Lipid Panel 02/12/2024 Lipid Panel 12/14/2024 Lipid Panel 01/06/2023 Lipid Panel 10/13/2023 Lipid Panel 11/09/2021 Hemoglobin A1c 06/11/2024 Hemoglobin A1c 02/12/2024 Next Appt Details Provider Name:Jagdish Forde , 01/11/2025 11:15:00 AM, [address] [place] [address] [place], [place], [phone], Provider Name:Jagdish Forde , 06/13/2025 11:00:00 AM, [address] [place] [address] [place], [place], [id number], Insurance Providers Payer Name Payer Address Payer Phone Subscriber Number Group Number Insured Name Patient Relationship to Insured Coverage Start Date Coverage End Date [employer] [address] [address] [place] [address] [id number] Lore Parker Self - patient is the insured [place] [address] [place], [place] [id number] Lore Parker Self - patient is the insured Medical (General) History Medical History History ICD Code Psoriasis L40.9 inclusion cyst, left chin, excised 2012 complete extraction. Maxillary teeth 201 7 tobacco dependence hyperlipidemia postmenopausal Surgical History Surgery Date(Month/Year) declines colonoscopy resection inclusion cyst, left chin is a lump in upper teeth extraction 2017
[2024-12-31 13:35] LABS: Cholesterol 195 mg/dL (<200); HDL Cholesterol 74 mg/dL (>40); Triglycerides 82 mg/dL (<150)
== END 2024-12-31 11:24 | disposition home or self-care (01) ==
LOC: HO.HMGCLDS 11:23
PROVIDERS: PCP Internal Medicine Medical Oncology; Visit Provider Internal Medicine Medical Oncology
DX: E78.2 Mixed hyperlipidemia (principal)
CPT/HCPCS: 36415; 80061